=== PATIENT | female | born 1970 | race Caucasian/White ===

== ENCOUNTER → 2017-08-12 15:09 | Outpatient (CLI) | payer OTHER, SELFPAY ==
--- NOTE | 2017-08-12 15:12 | RAD_ITS ---
STUDY: X-RAY - CERVICAL SPINE REASON FOR EXAM: Female, 46 years old. Postop TECHNIQUE: 2 view(s) of the cervical spine were obtained. COMPARISON: Prior study of April 15, 2017 FINDINGS: Normal anterior atlantoaxial articulation. Normal odontoid process. There are status post posterior spinal fusion changes with interpeduncular screws from C3 through T2. There is an anterior fusion plate from C4 to C7 with status post C6 corpectomy. There are status post laminectomy changes of C3-C6. There is no evidence of acute fracture or subluxation. RAD/Cerv Spine 2 or 3 Views IMPRESSION: Status post anterior and posterior cervical fusion changes. Findings are stable from the previous study of 04/15/2017. Electronically Signed: Hesham Wasserman MD at 23:50 EDT , Service support ,
== END ==
LOC: HPRAD 15:10
PROVIDERS: Family Provider Family Medicine; PCP Family Medicine; Visit Provider Orthopaedic Surgery
DX: M54.2 Cervicalgia (principal)
CPT/HCPCS: 72040

== ENCOUNTER 2017-08-28 08:59 | Outpatient (RCR) | payer OTHER, SELFPAY ==
--- NOTE | 2017-08-28 10:10 | HP.PTEVAL_ITS ---
Patient's Visit Information BRIAN CARMEN is a 46 year old F referred to Physical Therapy by Nayeli Keenan with a diagnosis of LBP. Date of Evaluation: 08/28/17 Physical Therapist: Susi Walker - Visit Plan Frequency: 1x/Week Duration: 1 Week Plan: HOME TENS UNIT. D/C. - Subjective Subjective: THIS PATIENT PRESENT TO PT WITH C/O CHRONIC LBP SINCE A FALL ON THE ICE ABOUT 20 YEARS AGO. MRI PENDING. PATIENT REPORTS HER LOW BACK PAIN IS CONSTANT AND RANGES 2/10 TO 8/10. STANDING, BENDING, LIFTING AND WALKING MAKE IT WORSE. DECREASED PAIN WITH REST. SHE DENIES YONI LE NUMBNESS AND TINGLING. PATIENT REPORTS SHE HAS HAD A TENS UNIT IN THE PAST THAT WAS HELPFUL BUT SHE CAN 'T FIND IT AND IT WAS STARTING TO SHOCK HER. SHE REPORTS SHE IS JUST HERE FOR A TENS UNIT BECAUSE SHE HAS TRIED PT IN THE PAST AND IT MADE IT WORSE. RECENT ACDF IN FEB 2017 BUT PATIENT REPORTS NO PT HAS BEEN ORDERED FOR HER NECK. - Objective THIS PATIENT AMBULATES INDEP'LY INTO PT WITHOUT ANY ASSISTIVE DEVICES. HER SITTING POSTURE IS POOR. HER STANDING POSTURE IS POOR. SHE HAS A REDUCED LUMBAR LORDOSIS AND NO RELEVENT LATERAL SHIFT. SHE STANDS WITH INCREASED TRUNK FLEXION. YONI LE LIGHT TOUCH SENSATION IS INTACT AND SYMMETRICAL. YONI LE STRENGTH IS GROSSLY 5/5 EXCEPT HIPS GRADED 4/5. LUMBAR MVMT LOSS: FLEX - MOD, EXT - MOD, YONI SG - MOD. PATIENT HAS C/O INCREASED PAIN WITH LUMBAR ROM TESTING ALL PLANES. INCREASED MUSCLE TONE YONI PARASPINALS. SHE HAS POOR CORE STRENGTH. - Goals Goal 1:: EVALUATION FOR APPROPRIATENESS OF AND INSTRUCTION IN USE OF HOME TENS UNIT. Goal Time Frame: 1 VISIT - Rehabilitation Potential Rehabilitation Potential: Fair - Anticipated Interventions Patient/Client Instruction: Educate patient on: Condition, Plan of Care, Risk Factors For the Purpose of:: To improve self management Other: USE OF HOME TENS UNIT Thank you for the opportunity to evaluate your patient. For Medicare and Medicare HMO plans, please review the plan of care and approve it. It will need to be FAXED BACK to us at [phone] for Medicare purposes. Please let me know if there are questions or concerns regarding this plan of care. Physician Signature: Date:
--- NOTE | 2017-08-28 10:10 | HP.PTDCSUM ---
HP - PT D/C Summary It has been my pleasure to treat BRIAN CARMEN under orders from Nayeli Keenan, for the diagnosis of LBP for a total of 1 visit(s). Discharge Date: Please see the following information for a summary of their discharge status. - Goals Goal 1:: EVALUATION FOR APPROPRIATENESS OF AND INSTRUCTION IN USE OF HOME TENS UNIT. Goal Progress: Progressing - Plan Plan: HOME TENS UNIT. D/C. - D/C Information If there are questions or concerns regarding this patient's physical therapy, please feel free to call me at [phone]. Thank you for the referral of this patient. Sincerely, Susi Walker
== END 2017-08-28 11:00 | disposition home or self-care (01) ==
LOC: PT 08:59
PROVIDERS: Family Provider Family Medicine; PCP Family Medicine; Visit Provider Orthopaedic Surgery
DX: M54.9 Dorsalgia, unspecified (principal)
CPT/HCPCS: 97161; 97530

== ENCOUNTER → 2017-08-30 08:45 | Outpatient (CLI) | payer OTHER, SELFPAY ==
--- NOTE | 2017-08-30 08:46 | MRI_ITS ---
STUDY: MRI LUMBAR SPINE WITHOUT CONTRAST REASON FOR EXAM: Female, 46 years old. lbp x 20 years. TECHNIQUE: Standardized fat and water weighted pulse sequences were obtained in the sagittal and axial planes. COMPARISON: None FINDINGS: T12-L1: There is a small chronic Schmorl's node.. Normal disc height, hydration and morphology. Normal bilateral facet joints. Normal central canal and bilateral lateral recesses. Normal bilateral intervertebral neural foramina. Normal lumbar lordosis. There is no substantial scoliosis. Normal conus medullaris that terminates at the L1/L2 L1-2: There is minimal disc space narrowing and endplate spondylosis. There is no significant central canal or foraminal stenosis. There is mild facet arthropathy. L2-3: Normal endplates. Normal disc height, hydration and morphology. Normal central canal and bilateral lateral recesses. Normal bilateral intervertebral neural foramina. There is mild facet arthropathy. L3-4: Normal endplates. Normal disc height, hydration and morphology. Normal central canal and bilateral lateral recesses. Normal bilateral intervertebral neural foramina. There is mild facet arthropathy. L4-5: There is minimal disc space narrowing and endplate spondylosis. There is a minimal disc bulge and facet arthropathy without significant central canal or foraminal stenosis. L5-S1: There is mild disc space narrowing and endplate spondylosis. There is a minimal disc bulge with posterior annular fissure and facet arthropathy without significant central canal or foraminal stenosis. Normal visualized sacral ala. Normal visualized paraspinous soft tissue structures. MRI/Spine Lumbar (Routine) IMPRESSION: Mild degenerative changes. Electronically Signed: Suresh Rodriguez MD at 11:06 EDT Tel , Service support ,
== END ==
PROVIDERS: Family Provider Family Medicine; PCP Family Medicine; Visit Provider Orthopaedic Surgery
DX: M54.16 Radiculopathy, lumbar region (principal)
CPT/HCPCS: 72148

== ENCOUNTER → 2018-03-31 13:37 | Outpatient (CLI) | payer OTHER, SELFPAY ==
--- NOTE | 2018-03-31 13:39 | RAD_ITS ---
STUDY: X-RAY - CERVICAL SPINE REASON FOR EXAM: Female, 47 years old. Surgery follow-up TECHNIQUE: 2 view(s) of the cervical spine were obtained. COMPARISON: April 15, 2017 FINDINGS: Stable surgical fusion from C3 to T2 levels. Stable alignment of the vertebral column. RAD/Cerv Spine 2 or 3 Views IMPRESSION: Stable surgical fusion. Electronically Signed: Jose Alejandro Denny DO at 23:49 EST Tel [phone], Service support ,
== END ==
PROVIDERS: Family Provider Family Medicine; PCP Family Medicine; Referring Provider Orthopaedic Surgery; Visit Provider Orthopaedic Surgery
DX: M54.2 Cervicalgia (principal)
CPT/HCPCS: 72040

== ENCOUNTER → 2018-04-23 10:42 | Outpatient (CLI) | payer OTHER, SELFPAY ==
--- NOTE | 2018-04-23 10:46 | RAD_ITS ---
STUDY: X-RAY - LUMBAR SPINE REASON FOR EXAM: Female, 47 years old. Back pain TECHNIQUE: Flexion and extension views were obtained. COMPARISON: Previous study 04/23/2018 FINDINGS: There is minimal diffuse endplate spondylosis of the lumbar spine. There is no evidence of fracture or spondylolisthesis. Disc spacing is preserved. The spinous processes appear within normal limits. RAD/L/S Spine Bending Flex/Ext IMPRESSION: Minimal diffuse endplate spondylosis of the lumbar spine. There is no evidence of fracture or spondylolisthesis. Disc spacing is preserved. Electronically Signed: Hesham Wasserman MD at 23:57 EST , Service support ,
--- NOTE | 2018-04-23 11:00 | RAD_ITS ---
STUDY: X-RAY - LUMBAR SPINE REASON FOR EXAM: Female, 47 years old. Back pain TECHNIQUE: 2 view(s) of the lumbar spine were obtained. COMPARISON: Prior study of 12/10/2016 FINDINGS: Normal lumbar lordosis. There is no substantial scoliosis. There is a normal alignment of the vertebrae. There is minimal diffuse endplate spondylosis. Normal disc space heights. The soft tissue structures are unremarkable. RAD/Lumbar Spine 2 or 3 Views IMPRESSION: Minimal diffuse endplate spondylosis. Findings are similar to the previous study. Electronically Signed: Hesham Wasserman MD at 23:48 EST , Service support ,
== END ==
PROVIDERS: Family Provider Family Medicine; PCP Family Medicine; Referring Provider Anesthesiology Pain Medicine; Visit Provider Anesthesiology Pain Medicine
DX: M54.5 Low back pain (principal)
CPT/HCPCS: 72100; 72120

== ENCOUNTER → 2019-04-06 11:35 | Outpatient (CLI) | payer OTHER, SELFPAY ==
--- NOTE | 2019-04-06 13:33 | STRESSREP ---
Stress Test Report Date: 04-06-19 Procedure: Exercise tolerance test Indications: Chest pain; dyspnea on exertion Consent: Per the patient Procedure: The patient exercised on a Isaiah protocol for 5 minutes and 30 seconds completing stage I and 2 minutes and 30 seconds of stage II achieving a peak heart rate of 130 bpm (76 % predicted maximal heart rate) with a peak blood pressure 172/90 mmHg and a peak MET capacity of approximately 7 MET's. The baseline ECG demonstrated sinus rhythm. The peak exercise ECG demonstrated no obvious ECG changes at the heart rate achieved. There was a rare PVC during exercise and recovery. The functional capacity was considered average. The patient had no complaint of chest discomfort during exercise or recovery. The examination was discontinued secondary to dyspnea. Impression: 1. Technically inadequate (percent predicted maximal heart rate less than 85%) exercise tolerance test 2. Peak exercise ECG with with no obvious ECG changes at the heart rate achieved 3. There was a rare PVC during exercise and recovery This note was generated with [employer] software. It may contain incorrect words, spelling, and punctuation that were not noted in checking the note before signing.
== END ==
PROVIDERS: Family Provider Family Medicine; PCP Family Medicine; Referring Provider Family Medicine; Visit Provider Family Medicine
DX: R06.09 Other forms of dyspnea (principal); R07.89 Other chest pain
CPT/HCPCS: 93017

== ENCOUNTER → 2019-05-03 06:12 | Outpatient (CLI) | payer OTHER, SELFPAY ==
--- NOTE | 2019-05-03 11:14 | STRESSREP ---
Stress Test Report Pharmacologic myocardial perfusion stress test. 48-year-old lady with a history of chest pain. Stress protocol: Resting EKG demonstrates normal sinus rhythm with a rate of 85 bpm normal intervals are noted. 0.4 mg of regadenoson was infused per usual protocol followed up intravenous saline flush injection continuous monitoring coordinator was performed. Patient maintained sinus rhythm throughout the recording. The resting blood pressure was 138/86 with a final blood pressure of 130/78. The patient maintained sinus rhythm throughout the recording with a maximum heart rate of 118 bpm heart rate which was 69% maximum predicted heart rate. Nonspecific ST-T wave changes were noted with no meet any criteria for ischemia. Myocardial perfusion protocol. 15.0 mCi of technetium 99m sestamibi was injected at rest. 0.4 mg of regadenoson was infused per usual protocol peak infusion 45.0 mCi of technetium 99m sestamibi was injected stress images were obtained stress and rest images were reconstructed and compared in the short axis vertical and horizontal long axis. Gated images were also obtained Perfusion SPECT analysis: Review of the stress images demonstrate normal uptake of tracer noted in all rest myocardium the resting images similar demonstrate normal uptake of tracer noted in all areas of myocardium. No areas of reversibility are noted suggest ischemia no previous infarct is noted. Gated SPECT analysis: The gated ejection fraction is noted to be 60%. Conclusion: Normal pharmacologic myocardial perfusion stress test. Preserved ejection fraction.
== END ==
PROVIDERS: Family Provider Family Medicine; PCP Family Medicine; Referring Provider Family Medicine; Visit Provider Family Medicine
DX: R07.89 Other chest pain (principal); R06.09 Other forms of dyspnea
CPT/HCPCS: 78452; 93017; A9500; A4216; J2785

== ENCOUNTER → 2019-10-14 | Outpatient (CLI) | payer OTHER, SELFPAY ==
--- NOTE | 2019-10-14 11:20 | MRI_ITS ---
STUDY: MRI LUMBAR SPINE WITHOUT CONTRAST REASON FOR EXAM: Female, 49 years old. SPONDYLOLISTHESIS, RT LEG NUMBNESS, LOW BACK PAIN TECHNIQUE: Standardized fat and water weighted pulse sequences were obtained in the sagittal and axial planes. COMPARISON: 08/30/2017 FINDINGS: T12-L1: Normal endplates. Normal disc height, hydration and morphology. Normal bilateral facet joints. Normal central canal and bilateral lateral recesses. Normal bilateral intervertebral neural foramina. Normal lumbar lordosis. There is no substantial scoliosis. Normal conus medullaris that terminates at the L1. L1-2: Normal endplates. Normal disc height, hydration and morphology. Normal bilateral facet joints. Normal central canal and bilateral lateral recesses. Normal bilateral intervertebral neural foramina. L2-3: Normal endplates. Normal disc height, hydration and morphology. Normal bilateral facet joints. Normal central canal and bilateral lateral recesses. Normal bilateral intervertebral neural foramina. L3-4: Normal endplates. Normal disc height, hydration and morphology. Normal bilateral facet joints. Normal central canal and bilateral lateral recesses. Normal bilateral intervertebral neural foramina. L4-5: Mild bilateral facet hypertrophy and ligament flavum hypertrophy. Small right foraminal protrusion produces moderate spinal stenosis with abutment of the right L4 nerve root laterally. L5-S1: No change in mild broad disc protrusion which produces mild spinal stenosis, mild left neural foraminal stenosis and moderate right neural foraminal stenosis with abutment of the right L5 nerve root laterally. Normal visualized sacral ala. Normal visualized paraspinous soft tissue structures. MRI/Spine Lumbar (Routine) IMPRESSION: Mild degenerative disc disease as described above slightly worsened when compared with prior study. Electronically Signed: Júnior Loza MD at 12:23 EDT Tel , Service support ,
== END | disposition home or self-care (01) ==
PROVIDERS: PCP Family Medicine; Referring Provider Orthopaedic Surgery; Visit Provider Orthopaedic Surgery
DX: M43.16 Spondylolisthesis, lumbar region (principal)
CPT/HCPCS: 72148

== ENCOUNTER → 2019-11-29 | Outpatient (CLI) | payer OTHER, SELFPAY ==
--- NOTE | 2019-11-29 09:35 | EKG12_ITS ---
Test Reason : WATSON JOSE CARLOS Blood Pressure : / mmHG Vent. Rate : 067 BPM Atrial Rate : 067 BPM P-R Int : 174 ms QRS Dur : 078 ms QT Int : 396 ms P-R-T Axes : 059 051 063 degrees QTc Int : 418 ms Normal sinus rhythm Normal ECG Confirmed by LUIS FELIPE AC, KEYSHAWN ([id number]), loan expeditor HAROON BENITEZ ([id number]) on 12/02/2019 9:46:08 AM Referred By: JENNIFER BERNARD Confirmed By:KEYSHAWN BRISCOE MD
== END | disposition home or self-care (01) ==
LOC: PSN 09:24
PROVIDERS: PCP Family Medicine
DX: Z79.899 Other long term (current) drug therapy (principal)
CPT/HCPCS: 93005

== ENCOUNTER → 2020-09-18 14:34 | Outpatient (CLI) | payer OTHER, SELFPAY ==
[2020-09-18 13:59] VITALS: BMI 41.3
[2020-09-18 14:58] LABS: Hematocrit 48.7 % (37-47); Hemoglobin 15.8 g/dL (12.0-15.0); Mean Corp Hgb Conc 32.4 g/dL (32-36); Mean Corpuscular Hgb 28.9 pg (27.0-32.0); Mean Corpuscular Volume 89.2 fL (81-99); Mean Platelet Vol. 10.5 fl (6.2-12.0); Platelet Count 244 K/mm3 (150-450); RBC Distribution Width CV 14.6 % (11.6-14.6); RBC Distribution Width SD 47.6 fl (35.1-43.9); Red Blood Count 5.46 M/mm3 (4.2-5.4); White Blood Count 9.7 K/mm3 (4.4-11.0)
[2020-09-18 15:33] LABS: Vitamin B12 469 pg/mL (211-911)
[2020-09-18 15:43] LABS: ALB/GLOB Ratio 0.9 RATIO (0.9-2.4); AST(SGOT) 26 U/L (15-37); Alanine Aminotransfer ALT/SGPT 34 U/L (13-56); Albumin, Serum 3.6 g/dL (3.2-5.0); Alkaline Phosphatase 77 U/L (45-117); Anion Gap 7 (5-15); BUN 11 mg/dL (7-18); BUN/Creat Ratio 11.1 RATIO (10-20); Chloride 105 mmol/L (98-107); Creatinine, Serum 0.99 mg/dL (0.55-1.02); EST Glomerular Filtration Rate 63 mL/min (>60); Est Glom Filt Rate - Afr Amer 76 mL/min (>60); Ferritin 29 ng/mL (8-252); Globulin 3.9 g/dL (2.2-4.2); Glucose 126 mg/dL (74-106); Hemoglobin A1c 6.3 % (3.8-5.6); Iron 65 ug/dL (50-170); Potassium 4.2 mmol/L (3.5-5.1); Protein, Total 7.5 g/dL (6.4-8.2); Sodium Level 138 mmol/L (136-145); Thyroid Stim Hormone (TSH) 1.32 uIU/mL (0.358-3.74); Uric Acid 5.6 mg/dL (2.6-6.0)
[2020-09-20 16:09] LABS: Free Lambda Light Chains 17.6 mg/L (5.7-26.3)
== END ==
LOC: LAB 14:35
PROVIDERS: PCP Family Medicine; Referring Provider Psychiatry & Neurology Neurology; Visit Provider Psychiatry & Neurology Neurology
DX: M79.671 Pain in right foot (principal); M79.672 Pain in left foot; G25.81 Restless legs syndrome; E79.0 Hyperuricemia without signs of inflammatory arthritis and tophaceous disease; Z86.39 Personal history of other endocrine, nutritional and metabolic disease
CPT/HCPCS: 36415; 80053; 82607; 82728; 82746; 83036; 83540; 83883; 84443; 84550; 85027

== ENCOUNTER → 2020-10-02 09:46 | Outpatient (CLI) | payer OTHER, SELFPAY ==
[2020-09-18 13:59] VITALS: BMI 41.3
--- NOTE | 2020-10-02 10:24 | RAD_ITS ---
STUDY: X-RAY - LUMBAR SPINE REASON FOR EXAM: Female, 49 years old. Low back pain TECHNIQUE: 4 view(s) of the lumbar spine were obtained. COMPARISON: None FINDINGS: Normal lumbar lordosis. There is no substantial scoliosis. There is a normal alignment of the vertebrae. Normal vertebral bodies and endplates. There is multi-level degenerative disc disease with multi-level disc space narrowing. There is no demonstrated fracture. No instability on the flexion or extension views. The soft tissue structures are unremarkable. RAD/L/S Spine Bending Flex/Ext IMPRESSION: Degenerative changes of the spine, as detailed above. No acute findings or significant interval change Electronically Signed: Willian Pressley MD at 12:08 EDT , Service support ,
[2020-10-04 14:09] LABS: Albumin 3.6 g/dL (2.9-4.4); Alpha-1-Globulins 0.2 g/dL (0.0-0.4); Alpha-2-Globulins 0.9 g/dL (0.4-1.0); Gamma Globulin 1.1 g/dL (0.4-1.8); Immunoglobulin A 327 mg/dL (87-352); Immunoglobulin G 1068 mg/dL (586-1602); Immunoglobulin M 137 mg/dL (26-217); PROEL- TOTAL PROTEIN 6.8 g/dL (6.0-8.5)
== END ==
LOC: LAB 09:47
PROVIDERS: PCP Family Medicine; Referring Provider Psychiatry & Neurology Neurology; Visit Provider Psychiatry & Neurology Neurology
DX: G62.9 Polyneuropathy, unspecified (principal); Z86.39 Personal history of other endocrine, nutritional and metabolic disease
CPT/HCPCS: 36415; 72120; 82784; 84165; 86334; 86335

== ENCOUNTER → 2021-05-09 08:49 | Outpatient (CLI) | payer OTHER, SELFPAY ==
[2020-08-07 13:16] VITALS: BMI 41.3
--- NOTE | 2021-05-09 13:20 | NEURO ---
NCS and/or EMG Patient Report Ordering Doctor: Stan Coombs DATE OF SERVICE: 05/09/21 Sabina presents for electrodiagnostic testing of the lower limbs. She reports lower back pain radiating into both legs with numbness and tingling Electrodiagnostic findings: Peroneal motor response demonstrates normal distal latency, amplitude and conduction velocity bilaterally. Normal tibial motor response bilaterally. Normal tibial and peroneal F waves H reflex normal bilaterally. Sensory responses are normal on needle EMG, muscles tested in the lower limbs as well as lumbar paraspinal showed no evidence of denervation with normal motor unit action potentials. Electrodiagnostic assessment: This is a normal electrodiagnostic study of the lower limbs. There is no electrodiagnostic evidence for peripheral neuropathy or lumbosacral radiculopathy.
== END ==
LOC: PSN 08:52
PROVIDERS: PCP Family Medicine; Referring Provider Psychiatry & Neurology Neurology; Visit Provider Psychiatry & Neurology Neurology
DX: M54.16 Radiculopathy, lumbar region (principal); M54.41 Lumbago with sciatica, right side; M54.42 Lumbago with sciatica, left side; G89.29 Other chronic pain; Z86.39 Personal history of other endocrine, nutritional and metabolic disease
CPT/HCPCS: 95886; 95913

== ENCOUNTER → 2022-01-10 | Outpatient (CLI) | payer OTHER, SELFPAY ==
--- NOTE | 2022-01-10 14:34 | RAD_ITS ---
STUDY: X-RAY - PELVIS REASON FOR EXAM: Female, 51 years old. Bilateral SI joint pain TECHNIQUE: One view of the pelvis was obtained. COMPARISON: None. FINDINGS: Large amount of fecal material is seen in the colon. There are multiple calcified phleboliths. There is narrowing with cortical sclerosis and osteophyte formation of the sacroiliac joint consistent with degenerative osteoarthritic changes. Normal visualized bilateral superior and inferior pubic rami. Normal pubic symphysis. Normal ischial tuberosities. Normal visualized right femoral head. Normal right acetabulum. Normal right hip joint. Normal visualized left femoral head. Normal left acetabulum. Normal left hip joint. RAD/Pelvis 1 or 2 Views IMPRESSION: Degenerative changes of the sacroiliac joints bilaterally. Electronically Signed: Edilberto Swan MD at 15:35 EDT ,
== END | disposition home or self-care (01) ==
PROVIDERS: PCP Family Medicine; Referring Provider Psychiatry & Neurology Neurology; Visit Provider Psychiatry & Neurology Neurology
DX: M53.3 Sacrococcygeal disorders, not elsewhere classified (principal); G89.29 Other chronic pain
CPT/HCPCS: 72170

== ENCOUNTER → 2022-04-25 | Outpatient (CLI) | payer OTHER, SELFPAY ==
--- NOTE | 2022-04-25 08:11 | MRI_ITS ---
HISTORY: lower back pain TECHNIQUE: Multiplanar and multisequence MR images of the lumbar spine were obtained without intravenous contrast. Sagittal and axial T2 and T1-weighted images, sagittal STIR images. COMPARISON: XR 03-20-22, MR 10/14/2019. FINDINGS: VERTEBRAE: Vertebral body heights maintained. No significant bone marrow signal abnormality. Mild degenerative endplate changes at L5-S1. ALIGNMENT: No significant anterior or posterior subluxation CONUS: Normal morphology and position of the conus medullaris at L1. INTERVERTEBRAL DISCS: T12-L1: No significant posterior disc protrusion, central canal stenosis, or foraminal narrowing based on the sagittal images. L1-2, L2-3, L3-4: No significant posterior disc protrusion, central canal stenosis, or foraminal narrowing. L4-5: Minimal disc bulge and facet arthropathy without significant central canal stenosis. Mild bilateral foraminal narrowing, not increased from prior. L5-S1: Minimal disc bulge and facet arthropathy without significant central canal stenosis or foraminal narrowing. SOFT TISSUES: Hepatomegaly. Mild posterior subcutaneous edema. MRI/Spine Lumbar (Routine) IMPRESSION: Very mild degenerative change of the lumbar spine without significant spinal canal stenosis. Mild foraminal narrowing as above. Electronically Signed: Kristin Mary MD at 11:28 EST ,
== END | disposition home or self-care (01) ==
PROVIDERS: PCP Family Medicine; Referring Provider Orthopaedic Surgery; Visit Provider Orthopaedic Surgery
DX: M53.3 Sacrococcygeal disorders, not elsewhere classified (principal); G89.29 Other chronic pain; M54.41 Lumbago with sciatica, right side; M54.42 Lumbago with sciatica, left side
CPT/HCPCS: 72148

== ENCOUNTER 2022-09-24 14:41 | Emergency (ER) | payer OTHER, SELFPAY ==
[2022-09-24 14:41] VITALS: BP 130/86; PULSE 81; RESP 23; TEMP 36; O2SAT 99; BMI 39.5
[2022-09-24 14:46] VITALS: BP 136/96; PULSE 86; RESP 20; O2SAT 99
[2022-09-24 14:51] VITALS: O2SAT 98
--- NOTE | 2022-09-24 15:13 | EKG12_ITS ---
Test Reason : CP Blood Pressure : / mmHG Vent. Rate : 081 BPM Atrial Rate : 081 BPM P-R Int : 160 ms QRS Dur : 082 ms QT Int : 376 ms P-R-T Axes : 056 025 017 degrees QTc Int : 436 ms Normal sinus rhythm Low voltage QRS Inferior infarct , age undetermined Abnormal ECG Confirmed by SHINE AC, GINO ([id number]), editor house organ JOSETTE WALLACE ([id number]) on 09/25/2022 12:57:01 P M Referred By: MOHINDER Confirmed By:MADINA RIOJAS MD
--- NOTE | 2022-09-24 15:13 | EDS_ITS ---
HPI History of Present Illness Chief Complaint: Chest Pain Informant: patient Onset/Context/Timing Onset: Today Activity at onset: sudden Timing: Continuous Quality: Positive for Heaviness Location: Substernal, Right Parasternal, Left Parasternal, Right Chest and Left Chest Worsened By: - (Anxiety) Relieved By: Rest Associated Symptoms: Positive for Nausea, Diaphoresis, Dyspnea, Lightheadedness, Acid Reflux and Palpitations; Negative for Vomiting, Cough or Fever Narrative Narrative: Patient presents with chest pain that began today. 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 Patient st ates she felt nauseated after this. Patient states that after that she started developing some pain in her chest. Patient states it is diffuse across her chest. Patient states it did feel somewhat similar to the pain she had prior to her HI last month. Patient describes it as a heaviness. Patient states it feels like her 20 pound dog is sitting on her chest. Patient states it is worse when she becomes anxious. Patient states it is better when she is able to calm herself down. Patient admits to some nausea but denies any vomiting. Patient admits to some shortness of breath and slight diaphoresis. Patient also admits to some palpitations. CVD Risk Factors: Positive for Diabetes, Hypercholesterolemia and Smoking; Negative for Hypertension or Family History 1' </=55 PE Risk Factors: Positive for Recent Travel/Surgery; Negative for Recent Immobilization, Prior DVT or PE, Cancer or OCP + Smoking + >/=35 PFSH PFSH Medical History Atherosclerotic heart disease of [place] coronary artery without angina pectoris H/O non-insulin dependent diabetes mellitus Hyperlipemia, mixed MVP (mitral valve prolapse) Sleep apnea STEMI (ST elevation myocardial infarction) (09/06/22) Syncope Home Medications albuterol sulfate 90 mcg/actuation aerosol inhaler 2 puff inhalation Q4H PRN 08/07/20 [History Last Taken Unknown] allopurinol 300 mg tablet 300 mg PO DAILY 08/07/20 [History Last Taken Unknown] aspirin 81 mg tablet,delayed release (Adult Aspirin Regimen) 81 mg PO DAILY 08/07/20 [History Last Taken Unknown] calcium carbonate 600 mg-vitamin D3 1,000 unit-vitamin K2 90 mcg tab 1 tablet PO DAILY 08/07/20 [History Last Taken Unknown] lansoprazole 30 mg capsule,delayed release 30 mg PO DAILY 08/07/20 [History Last Taken Unknown] metoprolol succinate 50 mg tablet,extended release 24 hr 50 mg PO QHS 08/07/20 [History Last Taken Unknown] multivitamin 1 tablet PO DAILY 08/07/20 [History Last Taken Unknown] bupropion HCl 150 mg 24 hr tablet, extended release 300 mg PO DAILY 09/11/21 [History Last Taken Unknown] pravastatin 20 mg tablet 40 mg PO QHS 09/11/21 [History Last Taken Unknown] duloxetine 30 mg capsule,delayed release 30 mg PO DAILY 01/10/22 [History Last Taken Unknown] duloxetine 60 mg capsule,delayed release 60 mg PO DAILY 01/10/22 [History Last Taken Unknown] flurbiprofen 100 mg tablet 100 mg PO TID PRN pain #90 tabs 07/24/22 [Rx Last Taken Unknown] gabapentin 800 mg tablet 800 mg PO QHS #30 tabs 07/24/22 [Rx Last Taken Unknown] leucovorin 4 mg-pyridoxal phosphate 50 mg-mecobalamin 2 mg tablet (Folinic-Plus) 1 tab-cap PO QAM #30 tabs 07/24/22 [Rx Last Taken Unknown] ropinirole 0.5 mg tablet 0.5 mg PO QHS #30 tabs 07/24/22 [Rx Last Taken Unknown] Allergy/AdvReac Type Severity Reaction Status Date / Time Penicillins Allergy Rash Verified 09/24/22 14:46 adhesive tape [plastic tape] AdvReac Severe Hives Verified 09/24/22 14:46 Family History Father Congestive heart failure Brother Hypertension Surgical History History of carpal tunnel surgery History of neck surgery Stented coronary artery (09/06/22) Social History Smoking Status: Current some day smoker tobacco type: cigarettes Tobacco: How many years used: 26 second hand exposure: Yes alcohol intake: current details: RARELY substance use type: does not use marisol/mandaeism: [employer] seatbelt use: always ROS ROS ED Constitutional Constitutional ED: Denies chills or fever(s) Eyes Eyes: Denies blurry vision or change in vision ENT ENT ED: Denies rhinorrhea or sore throat Cardiovascular Cardiovascular: Reports chest pain and palpitations Respiratory/Chest Respiratory/Chest: Reports dyspnea; Denies cough Gastrointestinal Gastrointestinal: Reports nausea; Denies abdominal pain or vomiting Genitourinary Genitourinary ED: Denies dysuria or hematuria Musculoskeletal Musculoskeletal: Reports back pain and neck pain Integumentary Denies abscess or rash Neurologic Neurologic: Denies headache(s) or weakness Allergic/Immunologic Allergic/Immunologic ED: Denies mouth swelling or urticaria EXAM Physical Exam Const Vital Signs: 09/24/22 14:41 09/24/22 14:46 09/24/22 14:47 Temperature 96.8 F L Temperature Source Temporal Pulse Rate 81 86 Respiratory Rate 23 H 20 H Respiratory Effort Normal Non-Labored Blood Pressure 130/86 H 136/96 H Blood Pressure Mean 100 109 Pulse Ox 99 99 Oxygen Delivery Method Room Air Room Air 09/24/22 14:51 09/24/22 15:21 09/24/22 16:19 Temperature Temperature Source Pulse Rate 85 Respiratory Rate 18 Respiratory Effort Blood Pressure 119/80 Blood Pressure Mean 93 Pulse Ox 98 98 Oxygen Delivery Method Room Air Room Air Room Air Positive well nourished, well developed and obese General Appearance ED: well developed and NAD Nutritional Appearance: obese HEENT normocephalic and atraumatic Eyes PERRL and EOMs intact bilaterally Neck supple and no JVD Chest Wall palpation of chest normal Resp normal respiratory effort and clear to auscultation bilaterally Effort and Inspection: Negative for respiratory distress Cardio regular rate and regular rhythm GI normal to inspection, nondistended, normoactive bowel sounds, soft to palpation, non-tender and non-distended Extremity normal to inspection General Extremety ED: Negative for edema or tenderness General Extremity: Negative for edema Neuro oriented x3, CN's II-XII intact bilaterally and no sensory deficits noted Sensorium / Orientation: awake and alert Motor Exam: strength 5/5 throughout Psych mental status grossly normal Heart Score History: Moderately Suspicious ECG: Nonspecific Repolarization Age: >45 - <65 years Risk Factors: >/= 3 Risk Factors or History of CAD Troponin: </= Normal Limit Score: 5 MDM MDM MDM Narrative Medical decision making narrative: Differential diagnosis includes cardiac dysrhythmia, cardiac ischemia, pulmonary embolism, pneumonia, pneumothorax, electrolyte abnormality, anxiety, vertigo, and musculoskeletal pain. EKG will be obtained to assess for cardiac dysrhythmia and cardiac ischemia. Chest x-ray will be obtained to assess for pneumonia and pneumothorax. CBC will be obtained to assess for leukocytosis and anemia. Basic metabolic profile will be obtained to assess for electrolyte abnormality and renal function. High-sensitivity troponin will be obtained to assess for cardiac ischemia. 2-hour repeat high-sensitivity troponin will be obtained to assess for ongoing cardiac ischemia. D-dimer will be obtained to assess for pulmonary embolism. Lab Data Attestation: I reviewed the patient's lab results. Lab results narrative: CBC was reviewed. There is a mild leukocytosis of 12.4. Basic metabolic profile was reviewed and was essentially within normal limits. High-sensitivity troponin was reviewed and was normal at 18. D-dimer was reviewed and was 0.52 which is normal for her age. 2-hour repeat high-sensitivity troponin was reviewed and was normal at 18. Labs: Laboratory Results - last 24 hr 09/24/22 09/24/22 09/24/22 14:50 14:50 14:50 WBC 12.4 H RBC 4.87 Hgb 14.6 Hct 44.4 MCV 91.2 MCH 30.0 MCHC 32.9 RDW Std Deviation 50.4 H RDW Coeff of [place]urn[place] 15.3 H Plt Count 277 MPV 10.9 Immature Gran % (Auto) 0.600 Neut % (Auto) 61.1 Lymph % (Auto) 27.6 [place] % (Auto) 7.5 Eos % (Auto) 2.5 Baso % (Auto) 0.7 Absolute Neuts (auto) 7.6 Absolute Lymphs (auto) 3.42 Nucleated RBC % 0 D-Dimer Quant (PE/DVT) 0.52 H* Sodium 139 Potassium 4.8 Chloride 107 Carbon Dioxide 26.0 Anion Gap 6 BUN 13 Creatinine 1.08 H Estim Creat Clear Calc 47.65 Est GFR (MDRD) Af Amer 68 Est GFR (MDRD) Non-Af 56 L BUN/Creatinine Ratio 12.0 Glucose 113 H Calcium 9.3 Troponin I High Sens 18 09/24/22 17:14 WBC RBC Hgb Hct MCV MCH MCHC RDW Std Deviation RDW Coeff of [place] Plt Count MPV Immature Gran % (Auto) Neut % (Auto) Lymph % (Auto) [place] % (Auto) Eos % (Auto) Baso % (Auto) Absolute Neuts (auto) Absolute Lymphs (auto) Nucleated RBC % D-Dimer Quant (PE/DVT) Sodium Potassium Chloride Carbon Dioxide Anion Gap BUN Creatinine Estim Creat Clear Calc Est GFR (MDRD) Af Amer Est GFR (MDRD) Non-Af BUN/Creatinine Ratio Glucose Calcium Troponin I High Sens 18 Radiography Chest X-Ray - ED: 1 View, Read by ED Physician, Read by Radiologist and No Acute Disease Diagnostic Testing: Clinical Impression(s) from Imaging Studies Chest X-Ray 09/24/22 15:28 IMPRESSION: No acute abnormality is seen. Electronically Signed: Edilberto Swan MD at 15:39 EDT , Portable 1 view chest x-ray was obtained. On my independent interpretation, lung alanis are clear. There is normal cardiac silhouette. Bony thorax is normal. There is no acute process noted. Radiologist also interpreted the x- ray and agrees. EKG Initial EKG: Attestation: I personally reviewed and interpreted this EKG as follows: Interpretation: Sinus Rhythm (81) and Non-Specific ST Changes Comments: EKG was obtained. On my independent interpretation, it showed a normal sinus rhythm with a rate of 81. OK interval, QRS interval, and QTc intervals were all normal. [place] was normal. There are nonspecific ST-T wave changes. Prior EKG tracings: available for review Prior: Changed (Compared to EKG from 09/06/2022, the ST segment elevation in the inferior leads has returned to baseline.) Treatment and Re-Evaluation :: Patient was given aspirin here. Patient was advised of her findings. Patient does have a HEART score of 5. However, patient had a recent cardiac cath and stent placement. Patient is feeling better on reevaluation. With 2 normal troponins, I do not feel this is cardiac in nature and I do not feel this is any restenosis of her cardiac stents. I feel the patient is able to be discharged home. Patient feels better and wants to go home. Patient was instructed to follow-up with her primary care physician in 3 to 5 days. Patient understood and was agreeable with the plan. All questions were answered. Discharge Plan Triage Chief Complaint: Chest Pain ED Provider: Jeronimo Slade Dx/Rx/DC Orders Clinical Impression: Chest pain, Vertigo Instructions: ED Chest Pain, Uncertain Cause, ED Dizziness, Uncertain Cause Prescriptions: No Action metoprolol succinate 50 mg tablet extended release 24 hr 50 mg PO QHS allopurinol 300 mg tablet 300 mg PO DAILY lansoprazole 30 mg capsule,delayed release(DR/EC) 30 mg PO DAILY Label Comments: Take 1 capsule by mouth once daily. albuterol sulfate 90 mcg/actuation HFA aerosol inhaler 2 puff INHALATION Q4H PRN Label Comments: Inhale 2 Puffs as instructed every 4 hours as needed for Wheezing/Shortness of Breath. calcium carb-vitamin D3-vit K2 600 mg-1,000 unit-90 mcg tablet 1 tablet PO DAILY multivitamin Tablet 1 tablet PO DAILY aspirin [Adult Aspirin Regimen] 81 mg tablet,delayed release (DR/EC) 81 mg PO DAILY duloxetine 30 mg capsule,delayed release(DR/EC) 30 mg PO DAILY duloxetine 60 mg capsule,delayed release(DR/EC) 60 mg PO DAILY ropinirole 0.5 mg tablet 0.5 mg PO QHS Qty: 30 6RF gabapentin 800 mg tablet 800 mg PO QHS Qty: 30 5RF flurbiprofen 100 mg tablet 100 mg PO TID PRN (Reason: pain) Qty: 90 5RF Folinic-Plus 4-50-2 mg tablet 1 tab-cap PO QAM Qty: 30 6RF bupropion HCl 150 mg tablet extended release 24 hr 300 mg PO DAILY pravastatin 20 mg tablet 40 mg PO QHS Primary Care Provider: Guido Mckeon Referrals: Guido Mckeon MD [Primary Care Provider] - 3-5 Days Disposition Disposition: Home, Self Care
[2022-09-24 15:22] LABS: Absolute Lymphocyte Count 3.42 X10^3/uL (0.83-4.51); Absolute Neutrophil Count 7.6 X10^3/uL (2.0-7.7); Basophil# 0.09 X10^3/uL; Basophil% 0.7 % (0-1); Eosinophil# 0.31 X10^3/uL; Eosinophils% 2.5 % (0-5); Hematocrit 44.4 % (37-47); Hemoglobin 14.6 g/dL (12.0-15.0); Lymphocyte # 3.42 X10^3/ul (0.83-4.51); Lymphocyte % 27.6 % (19-41); Mean Corp Hgb Conc 32.9 g/dL (32-36); Mean Corpuscular Volume 91.2 fL (81-99); Mean Platelet Vol. 10.9 fl (6.2-12.0); Monocyte# 0.93 X10^3/uL; Monocyte% 7.5 % (0-10); NRBC Flagged by Analyzer 0 % (0-5); Neutrophil # 7.55 X10^3/uL (2.7-7.7); Neutrophil % 61.1 % (47-70); Platelet Count 277 K/mm3 (150-450); RBC Distribution Width CV 15.3 % (11.6-14.6); RBC Distribution Width SD 50.4 fl (35.1-43.9); Red Blood Count 4.87 M/mm3 (4.2-5.4); White Blood Count 12.4 K/mm3 (4.4-11.0)
--- NOTE | 2022-09-24 15:28 | RAD_ITS ---
STUDY: X-RAY CHEST REASON FOR EXAM: Female, 51 years old. Chest pain TECHNIQUE: Single AP portable view of the chest. COMPARISON: Comparison is made with prior study February 08, 2016. FINDINGS: EKG electrodes are seen. The lungs are clear and expanded. Scattered calcified granulomas. There is no demonstrated pleural abnormality. Normal size heart. Normal mediastinum and nataliia. Normal visualized pulmonary arteries. Normal visualized aortic arch and descending thoracic aorta. There are diffuse degenerative changes of the visualized thoracic spine. The patient is status post fusion in the lower cervical spine. There is no demonstrated abnormality of the visualized soft tissue structures of the upper abdomen. RAD/Chest 1 View (Portable) IMPRESSION: No acute abnormality is seen. Electronically Signed: Edilberto Swan MD at 15:39 EDT ,
[2022-09-24] MEDS: Aspirin 81 MG TAB.CHEW 324 MG PO (15:29)
[2022-09-24 15:48] LABS: Anion Gap 6 (5-15); BUN 13 mg/dL (7-18); Calcium,Total 9.3 mg/dL (8.5-10.1); Chloride 107 mmol/L (98-107); Creatinine, Serum 1.08 mg/dL (0.55-1.02); EST Glomerular Filtration Rate 56 mL/min (>60); Est Glom Filt Rate - Afr Amer 68 mL/min (>60); Estimated Creatinine Clearance 47.65 ml/min; Glucose 113 mg/dL (74-106); Potassium 4.8 mmol/L (3.5-5.1); Sodium Level 139 mmol/L (136-145); Troponin-I HS (w/2H Reflex) 18 pg/mL (3.0-54.0)
[2022-09-24 15:59] LABS: D-Dimer Quantitative (DVT/PE) 0.52 FEU/ug/m (0.27-0.49)
[2022-09-24 16:19] VITALS: BP 119/80; PULSE 85; RESP 18; O2SAT 98
[2022-09-24 17:19] LABS: Reflex Troponin-HS? (from REC) Y
[2022-09-24 17:47] LABS: Troponin-I HS 18 pg/mL (3.0-54.0)
[2022-09-24 18:29] VITALS: BP 112/82; PULSE 74; RESP 16; O2SAT 97
== END 2022-09-24 18:31 | disposition home or self-care (01) ==
PROVIDERS: Emergency Provider Emergency Medicine; PCP Family Medicine; Visit Provider Emergency Medicine
DX: R07.9 Chest pain, unspecified (principal); E11.9 Type 2 diabetes mellitus without complications; F17.210 Nicotine dependence, cigarettes, uncomplicated; R42 Dizziness and giddiness; F41.9 Anxiety disorder, unspecified; I25.10 Atherosclerotic heart disease of native coronary artery without angina pectoris; R11.0 Nausea; E78.2 Mixed hyperlipidemia; E66.9 Obesity, unspecified; K21.9 Gastro-esophageal reflux disease without esophagitis; R00.2 Palpitations
CPT/HCPCS: 71045; 80048; 84484; 85025; 85379; 93005; 99285; A4216

== ENCOUNTER → 2022-09-30 | Outpatient (CLI) | payer OTHER, SELFPAY ==
--- NOTE | 2022-09-30 08:04 | PCM.CR.HP2 ---
CR - History & Physical - General Arrival date:: 09/30/22 Arrival time:: 08:00 Date of Referral:: 09/19/22 Date of CR Evaluation:: 09/30/22 Referring Physician: Dr. Kris Garcia Primary Diagnosis: [place]-STEMI, PC w/cornary stenting - History of Present Cardiac Event Onset Date: Enter Onset Date of cardiac illnesses in Comment field below Acute Myocardial Infarction within 12 months:: Yes - 09/06/2022 PTCA or coronary stenting:: Yes - 09/06/2022 single stent Type of Symptoms:: Real dizzy, went to the bathroom became very nauseated (like needed to vomit), broke out in a deep sweat. Called 911. Stayed alert throughout the incident. Interventions with present event:: Immediate taken to the [facility]. Were there any complications?: None - Sleep Disorder Evaluation Hx of Sleep Apnea: Yes Do you snore loudly (louder than talking or can be heard through closed doors)?: Yes Do you often feel tired/ fatigued/ sleepy during daytime?: No Has anyone observed you stop breathing during sleep?: Yes History of Hypertension (for STOP score): Yes - Patient has already been diagnosed with Obstructive Sleep Apnea STOP Results: Positive - Medications Home Medications: Ambulatory Orders Medication Instructions Recorded albuterol sulfate 90 mcg/actuation 2 puff inhalation Q4H PRN 08/07/20 aerosol inhaler allopurinol 300 mg tablet 300 mg PO DAILY 08/07/20 aspirin 81 mg tablet,delayed 81 mg PO DAILY 08/07/20 release (Adult Aspirin Regimen) calcium carbonate 600 mg-vitamin 1 tablet PO DAILY 08/07/20 D3 1,000 unit-vitamin K2 90 mcg tab lansoprazole 30 mg capsule,delayed 30 mg PO DAILY 08/07/20 release metoprolol succinate 50 mg 50 mg PO QHS 08/07/20 tablet,extended release 24 hr multivitamin 1 tablet PO DAILY 08/07/20 bupropion HCl 150 mg 24 hr tablet, 300 mg PO DAILY 09/11/21 extended release duloxetine 30 mg capsule,delayed 30 mg PO DAILY 01/10/22 release duloxetine 60 mg capsule,delayed 60 mg PO DAILY 01/10/22 release flurbiprofen 100 mg tablet 100 mg PO TID PRN pain #90 tabs 07/24/22 gabapentin 800 mg tablet 800 mg PO QHS #30 tabs 07/24/22 leucovorin 4 mg-pyridoxal 1 tab-cap PO QAM #30 tabs 07/24/22 phosphate 50 mg-mecobalamin 2 mg tablet (Folinic-Plus) ropinirole 0.5 mg tablet 0.5 mg PO QHS #30 tabs 07/24/22 atorvastatin 80 mg tablet 80 mg PO QHS 09/30/22 ticagrelor 90 mg tablet (Brilinta) 90 mg PO Q12H 09/30/22 - Allergies Allergies/Adverse Reactions: Allergies Penicillins Allergy (Verified 09/24/22 14:46) Rash adhesive tape [plastic tape] Adverse Reaction (Severe, Verified 09/24/22 14:46) Hives Advanced Directives - Advanced Directives Power of Printing Machine Mechanic: No Living Will: No Advance Directives Information Provided: Yes Advance Directives on File: No DNR Order?:: No - MOLST See MOLST form: No Past Medical History - Covid-19 Screening Fever: No Unexplained muscle aches: No - CHRonic muscle pain due to back problems Current respiratory symptoms: No Upper respiratory infections symptoms: No Gastro-intestinal symptoms: Yes - Gastric Reflux [id number] symptoms: No Has tested positive for COVID-19 in last 30 days: No Had contact w/person w/symptoms or Covid-19 (+) last 14 days: No Has High Risk Exposures ID'd by Health dept/Inf Control team: No 65 years or older:: No Lives in Assisted Living facility:: No Has a chronic lung disease or moderate to severe asthma:: Yes Has a serious heart condition:: No Immunocompromised:: No Severely obese (Body Mass Index of 40 or higher):: Yes Diabetic:: Yes Has chronic kidney disease undergoing dialysis:: No Has liver disease:: No - Past Medical Illness Medical History: Past Medical History (Last Reviewed 09/24/22 @ 16:[address] Jeronimo Slade, DO) Atherosclerotic heart disease of [place] coronary artery without angina pectoris I25.10 H/O non-insulin dependent diabetes mellitus Z86.39 Hyperlipemia, mixed E78.2 MVP (mitral valve prolapse) I34.1 Sleep apnea G47.30 STEMI (ST elevation myocardial infarction) Onset Date: 09/06/22 I21.3 Syncope R55 vasovagal/neurocardiogenic - Past Surgical History Surgical History: Past Surgical History (Last Reviewed 09/24/22 @ 16:[address] Jeronimo Slade, DO) History of carpal tunnel surgery Z92.89 History of neck surgery Z98.890 5 YEARS AGO [place] Stented coronary artery Onset Date: 09/06/22 Z95.5 3.5 X 26 mm Synergy SOSA to mid RCA @ [facility]) per Dr. Edwina Gonzalez - Family History Summary Family History: Family History (Last Reviewed 09/02/22 @ 11:36 by Veronica Angeles) Father Congestive heart failure Brother Hypertension Social History - Smoking History Smoking Status: Current every day smoker Years Smokin Packs Smoked per Day: 6 - Down from 1 to 1.5 PPD Hx Tobacco Use: Yes Hx Smoking Exposure: Yes - Alcohol Use Alcohol Usage: Yes - very rarely; special occasions 1-2 times per year if any - Substance Abuse Hx Substance Use: No - Occupation Occupation (List type of work in comments):: Employed Hours worked per day:: 8 - [employer] Returned to work on:: 09/17/22 - Hobbies, Recreation, Social Activities Hobbies: Other Recreational Activities: I am able to engage in a few activities - back needing surgery for L5-S1 joint issues Social Environment - Status Marital Status: - Current Living Arrangements Living Environment:: Spouse - Children How many children do you have?: 0 Do any of your children live nearby?: No - Safety Do you feel safe in your surroundings?: Yes - Assistance Do you need any assistance at home?: no Review of Systems - Review of Systems Hints: Right click = Denies (Slash). Left click = Reports ([place]) Review of Present Symptoms: Reports: Shortness of Breath at Rest - Questioning if it is relateed to the Brilinta but getting less., Shortness of Breath with Exertion, Dizziness/Lightheadedness - bending over certain way, standing to quickly, Fatigue, Appetite - Normal, Sleep - Normal. Denies: Angina, Heart Arrhythmia/Irregularities, Appetite - Special Diet - low-fat foods, cut out cheese, low sugar, Sexual Changes - Pain Is Patient Pain Free?: No Pain Location: back Pain Level: 6/10 - Chronic back pain (requiring back surgery but has been delayed due to the heart attack) Risk Factor Assessment - Vital Signs Temperature: 98.2 F Respiratory Rate: 14 Pulse Ox: 98 Blood Pressure: 140/84 - Pulse Pulse Rate: 97 Pulse Rhythm: Regular - Hypertension Blood Pressure Sitting - Left Arm: 140/84 - Blood Cholesterol/Lipids Total Cholesterol (mg/dL) Goal = less than 200 mg/dL: 185 HDL Cholesterol (mg/dL) Goal = less than 40 mg/dL: 36 LDL Cholesterol (mg/dL) Goal = less than 70 mg/dL: 105 - . Triglycerides (mg/dL) Goal = less than 150 mg/dL: 219 - Diabetes Diabetic History: Type II, Medication Dependent - Obesity Height: 5 ft 2 in Weight:: 227 lb Weight in Pounds: 227.0 lbs Weight Source: Stated by Patient Body Mass Index (BMI): 41.5 Nutritional Referral for Obesity: Yes - Physical Inactivity Physical Inactivity: None - Risk Stratification Risk Guidelines: Moderate Risk: Risk Factor for Diabetes - Glucose 126; A1c 6.3, Risk Factor for Sedentary Lifestyle - Mostly due to L5-S1 joint needing surgery to repair, Highest Risk: Risk Factor for Smoking, Risk Factor for Dyslipidemia, Risk Factor for Obesity - BMI 41, Risk Factor for Hypertension - 140/84, Risk Factor for Sedentary Lifestyle - Family History Family History: Family History (Last Reviewed 09/02/22 @ 11:36 by Veronica Angeles) Father Congestive heart failure Brother Hypertension Motivation - Motivation to Participate On a scale of 1 to 10, how prepared are you to commit to attending program?: 10 What do you see as barriers to successfully being able to complete the program?: Chronic Back pain What do you see as the benefits of succesfully completing the program? In other words, what do you hope to get out of participating in the program?: Build up endurance, be able to exercise, hopefully help my back some Are there issues you are dealing with that will interfere with completing the program?: Chronic back Pain Do you have a spouse or signficant other, family or friends who will help support you to complete the program?: Yes
--- NOTE | 2022-09-30 08:05 | CR.ITP_ITS ---
Diagnosis - General Information Admitting Diagnosis: S/P WI-STEMI w/ PCI intervention and single stent placement Secondary Diagnosis: Non-insulin dependent DM Type II, Hypertension, Hyperlipidemia, Mitral Valve prolapse Personal Learning Style:: Written Barriers to Learning: Vision Impairment Stage of change r/t lifestyle modifications:: Action Gave educational material for:: Treating Heart Disease, Emotions & Heart Disease, Stress Management & Relaxation, Sleep Disorders & Heart Disease, How The Heart Works, What it means to have Heart Disease, How Coronary Artery Disease is Diagnosed, Heart Procedures, What Heart Medications Do, Risk Factors & Modifications, Living an Active Life, Nutrition - Education/Goals Individual Counseling: Initial Assessment: Nicotine/Smoking, Abnormal Cholesterol Levels, High Blood Pressure, Overweight/Obesity, Diabetes, Sedentary Lifestyle - Due to S1 joint issues needing surgery. Cardiac Rehabilitation Goals: 1. Maintain the individual as the primary focus of care. 2. To improve the patient's quality of life. 3. Identification of cardiac risk factors and provide cardiac risk factor management. 4. Enhance the psychosocial status of the patient. 5. Reconditioning enough to allow the patient to resume customary activities. 6. Control symptoms of cardiac disease Personal Goals: Initial Assessment: Quit smoking (participate in smoking cessation - I know I need to quit Smoking, Improve management of stress and emotions, Improve energy level, Participate in home exercise program, Get back to work, or to resume activities faster, Improve knowledge of cardiac disease, Improve muscle strength and endurance, Improve diet and eating habits (eat healthier), Control risk factors (learn risk factor modification) Scale for measuring improvement of personal goals: Enter appropriate number in Comments. 2 = Unchanged. 3 = Slightly Better. 4 = Moderate Improvement. 5 = Met my Goal - Diagnosis & Disease Process Outcomes/Goals: Pt IDs own risk factors & lifestyle modifications by Session 10, Verbalizes symptoms of angina & response by session 3., Pt independently manages Plan/Interventions: Assist Pt to ID & engage in lifestyle modification to reduce CVD risk, Instruct on individual risk factors, Review symptoms of angina & emergency actions, Review secondary diagnosis & identify educational needs. - Safety Referral to Physical Therapy: No Referral to [facility] Case Management: No Fall Risk Assessed:: Yes Assistive Devices:: None Exercise - Initial Assessment - Visit Date of Eval: 09/30/22 Session #:: 0 - Pre-cardiac rehab evaluation Mets: Pre-: >7 METS for 30 minutes by discharge - Physician Prescribed Exercise Modalities: NuStep, SciFit, Lateral Franks Field Frequency: 3x/week for 12 weeks [36 sessions] Intensity: 60-80% of age predicted maximum heart rate reserve Duration: 30 - 45 minutes Current METSs:: 3.0 Target Heart Rate:: 109-125 Resting Blood Pressure: 140/84 EKG Type: Normal Sinus Rhythm - Outcomes & Goals Goals:: Verbalizes understanding of THR, RPE & goal METS by session 6, Documents in home exercise log/reports 30 min aerobic 5 day/wk by DC, Demonstrates acc urate pulse taking by DC - Intervention & Plan Exercise Program Goals: Instruct on personal THR & RPE, Instruct on MET level & personal MET goal, Show patient to take own pulse /validate performance until accurate, Instruct on home exercise - Physical Activity Home Exercise Physical Activity - Home Exercise: Safe Exercise, Warm-up, Self-monitoring, Cool-Down, Home Exercise > 30 min Daily, Sitting Time <3 hours/daily - Outcomes & Goals Outcomes/Goals: Demonstrates correct Warm-up/exercise Cool-Down (S3) if = 2.5 METs, Verbalizes symptoms of exercise intolerance by Session 3 (S3), Demonstrate safe equipment use (S3) & follows exercise prescrition (6) - Intervention & Plan Plan/Intervention: Instruct warm-up & cool-down if exercising at > 2 METs, Instruct on symptoms of exercise intolerance & actions to take, Instruct & monitor on saf, Assess intial functional capacity & safety risk Nutrition - Initial Assessment - Program Goals Nutrition Program Goals: LDL <100 optimal. 100 - 129 Near optimal. 130 - 159 Borderline High. 160 - 189 High. Total Cholesterol <200 desirable. 200 - 239 Borderline High. >/= 240 High. HDL < 40 Low >/=60 High. Triglycerides <150 desirable. <199 optimal. VlDL 5 - 40. HgbA1C <7%. BMI <25 Patient has diagnosis of Hyperlipidemia (ICD E78)?: Yes - Visit Date of Assessment:: 09/30/22 Session #:: 0 - Pre-cardiac rehab evaluation - Cholesterol/Lipids (Other Core Measures) Triglycerides (mg/dL): 219 Total Cholesterol (mg/dL): 185 LDL Cholesterol (mg/dL): 105 HDL Cholesterol (mg/dL): 36 Determine presence & major risk factors that modify LDL goal: Cigarette smoking, Hypertension or hypertensive medication, Low HDL cholesterol <40 mg/dL*, Age men > 45 years; women >/= 55 years Outcomes/Goals: Pt IDs own risk factors & lifestyle modifications by Session 10, Verbalizes symptoms of angina & response by session 3., Pt independently manages Intervention/Plan: Instruct on personal lipid levels & lipid goals/NCEP guidelines, Instruct on cholesterol Referral to dietitian:: Yes - Medical Nutrition Therapy - Diabetes (Other Core Measures) Diabetes Type: Diagnosis Type II ICD-10 E11 Fasting blood glucose:: 126 Hgb A1C (4.2 - 6.3): 6.3 Insulin dependent injection/pump?: No Non-Insulin Dependent?: No Do you monitor your blood sugar at home?: Yes Outcomes/Goals:: Able to state symptoms of, Able to state, Able to state Intervention/Plan:: Instruct on, Refer to, Instruct on - Weight Mgt (Other Care) Not Applicable: No Height: 5 ft 2 in Weight:: 227 lb BMI: 41.5 Diagnosis Overweight/Obesity BMI> 30% ICD-10 E66: Yes Diagnosis High BMI/Morbid Obesity BMI> 35% ICD-10 Z68: Yes Outcomes/Goals: Pt sets, maintains & shows weight loss goal & trend during rehab Intervention/Plan: Instruct on ideal BMI & set weight loss goal w/patient, Assist pt to ID & incorporate diet changes for weight loss by S9, Refer to Structured Weight Loss program as appropriate, Encourage goal of using 250- 300dcal per session for weight loss - Healthy Eating Habits Will attend diet classes:: Yes Outcomes/Goals:: Consume diet rich in vegs,fruits,whole grain/high fiber,fish,lean meat, Limit sat/trans fats,cholesterol & added salts & sugars Intervention/Plan:: Assess current eating habits - Education Gave educational materials for:: Signs & symptoms of hypoglycemia, Signs & symptoms of hyperglycemia, Relate diabetes to coronary artery disease, Healthy eating Nutrition - 30-Day Assessment Nutrition - 60-Day Assessment Nutrition - 90-Day Assessment Nutrition - Final Assessment Core - Initial Assessment - Visit Date of Eval: 09/30/22 Session #:: 0 - Pre-cardiac rehab evaluation - Medication Compliance Preventative Medication(s):: Aspirin, Ticagrelor/P2Y12 inhibitor, Statin/lipid, Beta eleonora H/O mental health issues: depression, anxiety, or addiction?: No Doesn?t believe in the benefits of treatment?: No Believes medications are unnecessary or harmful?: No Has a concern about medication side effects?: No Expresses concern over the cost of medications?: No Outcomes/Goals: Verbalizes medications,desired effect & common side effects @ DC, Pt self-reports following medication regimen, Keeps card in wallet w/medications listed by DC Interventions/plans: Instruct on medication effects & side effects, Review medication list w/patient every two weeks, Instruct importance of taking meds as ordered & assist problem solving - Tobacco Use Tobacco Use: Cigarettes How many cigarettes do you smoke per day?: 6 - Previous pack to 1.5 ppd Years Smokin Do you use smokeless tobacco?: No Outcomes/Goals: Smoking cessation achieved or maintained by discharge, Identify aids/strategies for achieving smoking cessation by session 6 Interventions/plan: Instruct on effects of smoking & provide smoking cessation resource, Assist pt to set quit date & provide encouragement, Assist pt to develop strategies to achieve/maintain quit date, Assist pt w/nicotine replacement & medication for cessation success - Hypertension Hypertension Diagnosis:: Hypertension ICD-10 I10 Resting Blood Pressure:: 140/84 [place] [employer] Hypertension Guidelines: [place] [employer] Hypertension Guidelines. Normal BP Less than 120/80. Elevated BP 120/80. Hypertension Stage 1: BP 130-139/80-89. Hypertesnion Stage 2: BP 140 or higher/90 or higher. Hypertension Crisis: BP higher than 180/120 Outcomes/Goals: Able to verbalize/achieve optimal blood pressure <130/80, Incorporates diet changes & exercise for blood pressure control by DC Interventions/plan: Instruct on optimal blood pressure, hypertension & medications, Instruct on effects of sodium, alcohol, stress, exercise &hypertension - Tobacco Cessation Referral Smoking Cessation Referral:: Yes Individual Education/Counseling:: Yes Education Schedule Given:: Yes Core - 30-Day Assessment Core - 60-Day Assessment Core - 90 Day Assessment Core - Final Assessment Psychosocial - Initial Assess - VIsit Date of Eval: 09/30/22 Session #:: 0 - Pre-cardiac rehab evaluation Not Applicable: No History of previous Mental disease:: Yes History of Emotional Disorders: Anxious, Depression - Psychosocial Test Tool Used:: [employer] QOL Cardiac, PHQ-9 Questionnaire phq-9 Severity: Severity. 1-4 Minimal Depression. 5-9 Mild Depression. 10-14 Moderate Depression. 15-19 Moderately Sever Depression. 20-27 Severe Depression. Rule: See PHQ-9 Score: 12 - PHQ indicated Moderate Depression - Referral to Behavioral Health PS - Interventions: Yes Referral to Physician if PHQ-9 if score is 5-9: - PHQ-9 indicated Moderate level of depression, Yes Attend Stress Management Classes, No Referral to Behavioral Health if PHQ-9 score >9:, No Referral to [facility] - Outcomes/Goals: See list Psychosocial Outcomes/Goals:: ID's personal stressors & 2 strategies to manage stress by discharge - Intervention/Plan: See List Interventions/Plan:: Assess stressors,coping strategies & signs of derpression on admission, Instruct/assist pt to develop coping & personal stress Mgt strategies, Instruct patient to recognize signs & symptoms of depression, Instruct patient to recog Psychosocial - 30-Day Assess Psychosocial - 60-Day Assess Psychosocial - 90-Day Assess Psychosocial - Final Assessmen Patient Health Questionnaire Initial Assessment 1. Little interest or pleasure in doing things: Several days 2. Feeling down, depressed, or hopeless: Several days 3. Trouble falling or staying asleep, or sleeping too much: More than half the days 4. Feeling tired or having little energy: More than half the days 5. Poor appetite or overeating: Not at all 6. Feeling bad about yourself -- or that you are a failure or have let yourself or your family down: Nearly every day 7. Trouble concentrating on things, such as reading the newspaper or watching television: Nearly every day 8. Moving or speaking so slowly that other people could have noticed. Or the opposite - being so fidgety or restless that you have been moving around a lot more than usual: Not at all 9. Thoughts that you would be better off , or of hurting yourself in some way: Not at all How difficult have these problems made it for you to do your work, take care of things at home, or get along with other people?: Extremely difficult Total Score: 12 WILD-Q SV Test - Statements CAD is a disease of the arteries in the heart: False Examples of risk factors for heart disease: True Angina is chest pain or discomfort: True The benefits of resistance training include: True Eating more meat and dairy products: False Anti-platelet medications such as aspirin are important: False The only effective way to manage stress: False An exercise warm-up slowly increases heart rate: False Prepared, processed foods usually have high sodium: True Depression is common after a heart attack: True The statin medications lower cholesterol: True To control blood pressure, lower the amount of sodium: True If someone gets chest discomfort during walking: False Transfats are partially hydrogenated vegetable oils: True Sleep apnea that is not treated increases the risk: False To control cholesterol, one should become a vegetarian: False Someone knows if he/she is exercising at the right level: True Diabetes cannot be prevented with exercise & health eating: False Stress is a large risk for heart attack: True A diet that can help lower blood pressure is rich in: True - Total Score Total Correct Responses: 18 Self-Efficacy Initial Assessment We would like to know how confident you are in doing certain activities. Please select your confidence level for:: Select your confidence level for the following using the scale 1-10 where 1 is not at all confident and 10 is totally confident. Your score is the average of all 6 responses. Fatigue: How confident are you that you can keep the fatigue caused by your disease from interfering with the things you want to do? Select Number: 3 Physical Discomfort or Pain: How confident are you that you can keep the physical discomfort or pain of your disease from interfering with the things you want to do? Select Number: 3 Emotional Distress: How confident are you that you can keep the emotional distress caused by your disease from interfering with the things you want to do? Select Number: 3 Other Symptoms or Health Problems: How confident are you that you can keep other symptoms or health problems from interfering with the things you want to do? Select Number: 3 Different Tasks and Activities: How confident are you that you can do the different tasks and activities needed to manage your health condition so as to reduce your need to see a doctor? Select Number: 3 Medication: How confident are you that you can do things other than just taking medication to reduce how much your illness affects your everyday life? Select Number: 5 Total Score:: 3 Nutrition Survey - Nutrition Survey Initial Have you lost >10 lbs over the past 2 months without trying?: No Are you following a special diet at home for diabetes, low fat, or low salt?: Yes Are you interested in meeting with a dietitian for help understanding your diet?: Yes Do you eat less than 3 meals a day?: No Do you eat fatty meats (mercedes, sausage, ribs, etc), fried foods, desserts, large amounts of salad dressings, margarine, butter, or cheese most days?: No Do you have food allergies? [Enter types in comment field]: Yes Do you eat in restaurants more than 3 times a week?: Yes Do you season food with salt, seasoning salt, or garlic salt?: Yes Do you used canned, boxed, frozen meals, or soups, seasoning packets?: Yes - High Risk ; patient would benefit from both diabetic education & weight loss programs Total Score:: 6
[2022-09-30 08:34] VITALS: BP 140/84; BMI 41.5
[2022-09-30 08:50] VITALS: BP 140/84; PULSE 97; RESP 14; TEMP 36.8; O2SAT 98; BMI 41.5
== END | disposition home or self-care (01) ==
LOC: CR 07:55
PROVIDERS: PCP Family Medicine; Visit Provider Internal Medicine Cardiovascular Disease
DX: I25.10 Atherosclerotic heart disease of native coronary artery without angina pectoris (principal); I25.2 Old myocardial infarction; Z95.5 Presence of coronary angioplasty implant and graft

== ENCOUNTER 2022-10-16 09:30 | Outpatient (RCR) | payer OTHER, SELFPAY ==
[2022-09-30 08:34] VITALS: BMI 41.5
--- NOTE | 2022-10-04 08:03 | CR.HP_ITS ---
CR - History & Physical - General Arrival date:: 10/04/22 Arrival time:: 08:03 Date of Referral:: 09/09/22 Date of CR Evaluation:: 10/04/22 - Delayed due ot patient having Home Health Referring Physician: Dr. Kris Garcia Primary Diagnosis: NSTEMI - History of Present Cardiac Event Onset Date: Enter Onset Date of cardiac illnesses in Comment field below Acute Myocardial Infarction within 12 months:: Yes - Non-ST elevated myocardial infarction Type of Symptoms:: chest pain, down the left and right arms Interventions with present event:: Heart cath, decided no stent procedure needed. Were there any complications?: None - Sleep Disorder Evaluation Hx of Sleep Apnea: Yes Do you snore loudly (louder than talking or can be heard through closed doors)?: Yes Do you often feel tired/ fatigued/ sleepy during daytime?: Yes Has anyone observed you stop breathing during sleep?: No History of Hypertension (for STOP score): Yes STOP Results: Positive - Medications Home Medications: Ambulatory Orders Medication Instructions Recorded albuterol sulfate 90 mcg/actuation 2 puff inhalation Q4H PRN 08/07/20 aerosol inhaler allopurinol 300 mg tablet 300 mg PO DAILY 08/07/20 aspirin 81 mg tablet,delayed 81 mg PO DAILY 08/07/20 release (Adult Aspirin Regimen) calcium carbonate 600 mg-vitamin 1 tablet PO DAILY 08/07/20 D3 1,000 unit-vitamin K2 90 mcg tab lansoprazole 30 mg capsule,delayed 30 mg PO DAILY 08/07/20 release metoprolol succinate 50 mg 50 mg PO QHS 08/07/20 tablet,extended release 24 hr multivitamin 1 tablet PO DAILY 08/07/20 bupropion HCl 150 mg 24 hr tablet, 300 mg PO DAILY 09/11/21 extended release duloxetine 30 mg capsule,delayed 30 mg PO DAILY 01/10/22 release duloxetine 60 mg capsule,delayed 60 mg PO DAILY 01/10/22 release flurbiprofen 100 mg tablet 100 mg PO TID PRN pain #90 tabs 07/24/22 gabapentin 800 mg tablet 800 mg PO QHS #30 tabs 07/24/22 leucovorin 4 mg-pyridoxal 1 tab-cap PO QAM #30 tabs 07/24/22 phosphate 50 mg-mecobalamin 2 mg tablet (Folinic-Plus) ropinirole 0.5 mg tablet 0.5 mg PO QHS #30 tabs 07/24/22 atorvastatin 80 mg tablet 80 mg PO QHS 09/30/22 ticagrelor 90 mg tablet (Brilinta) 90 mg PO Q12H 09/30/22 - Allergies Allergies/Adverse Reactions: Allergies oak Allergy (Verified 10/04/22 08:08) Other Penicillins Allergy (Verified 09/24/22 14:46) Rash adhesive tape [plastic tape] Adverse Reaction (Severe, Verified 09/24/22 14:46) Hives Past Medical History - Covid-19 Screening Fever: No Unexplained muscle aches: No Current respiratory symptoms: No Upper respiratory infections symptoms: No Gastro-intestinal symptoms: No [id number] symptoms: No - Does have history of seasonal allergies related to [place] pollen Has High Risk Exposures ID'd by Health dept/Inf Control team: No 65 years or older:: Yes Lives in Assisted Living facility:: No Has a chronic lung disease or moderate to severe asthma:: No Has a serious heart condition:: No Immunocompromised:: No Severely obese (Body Mass Index of 40 or higher):: No Diabetic:: Yes Has chronic kidney disease undergoing dialysis:: No Has liver disease:: No - Past Medical Illness Medical History: Past Medical History (Last Reviewed 09/24/22 @ 16:[address] Jeronimo Slade, DO) Atherosclerotic heart disease of [place] coronary artery without angina pectoris I25.10 H/O non-insulin dependent diabetes mellitus Z86.39 Hyperlipemia, mixed E78.2 MVP (mitral valve prolapse) I34.1 Sleep apnea G47.30 STEMI (ST elevation myocardial infarction) Onset Date: 09/06/22 I21.3 Syncope R55 vasovagal/neurocardiogenic - Past Surgical History Surgical History: Past Surgical History (Last Reviewed 09/24/22 @ 16:[address] Jeronimo Slade, DO) History of carpal tunnel surgery Z92.89 History of neck surgery Z98.890 5 YEARS AGO [place] Stented coronary artery Onset Date: 09/06/22 Z95.5 3.5 X 26 mm Synergy SOSA to mid RCA @ [facility] ([place]) per Dr. Edwina Gonzalez - Family History Summary Family History: Family History (Last Reviewed 04/17/23 @ 11:36 by Veronica Angeles) Father Congestive heart failure Brother Hypertension Social History - Smoking History Smoking Status: Never smoker - Occupation Occupation (List type of work in comments):: Retired - and tired... with a giggle. - Hobbies, Recreation, Social Activities Hobbies: Other - Traveling to [place] Social Environment - Status Marital Status: - Current Living Arrangements Living Environment:: Alone - Safety Do you feel safe in your surroundings?: Yes Review of Systems Risk Factor Assessment - Vital Signs Temperature: 98 F Respiratory Rate: 16 Pulse Ox: 95 Blood Pressure: 125/53 - Pulse Pulse Rate: 65 Pulse Rhythm: Regular - Hypertension Blood Pressure Sitting - Left Arm: 125/53 - Blood Cholesterol/Lipids Total Cholesterol (mg/dL) Goal = less than 200 mg/dL: 78 HDL Cholesterol (mg/dL) Goal = less than 40 mg/dL: 47 LDL Cholesterol (mg/dL) Goal = less than 70 mg/dL: 24 Triglycerides (mg/dL) Goal = less than 150 mg/dL: 35 - Diabetes Diabetic History: Type II, Medication Dependent - metformin - Obesity Height: 5 ft 2 in Weight:: 131 lb 9.6 oz Weight in Pounds: 131.6 lbs Weight Source: Stated by Patient Body Mass Index (BMI): 24.0 Nutritional Referral for Obesity: No - Risk Stratification Risk Guidelines: Lowest Risk: Risk Factor for Smoking, Risk Factor for Obesity, Risk Factor for Hypertension, Risk Factor for Sedentary Lifestyle, Risk Factor for Depression, Moderate Risk: Risk Factor for Dyslipidemia, Risk Factor for Diabetes - 138 Glucose; A1c 7.1% - Family History Family History: Family History (Last Reviewed 09/02/22 @ 11:36 by Veronica Angeles) Father Congestive heart failure Brother Hypertension
[2022-10-04 08:28] VITALS: BP 125/53; PULSE 65; RESP 16; TEMP 36.6; O2SAT 95; BMI 24.0
== END 2022-10-16 23:59 ==
LOC: CR 09:30
PROVIDERS: PCP Family Medicine; Visit Provider Internal Medicine Cardiovascular Disease
DX: I25.2 Old myocardial infarction (principal)
CPT/HCPCS: 93798

== ENCOUNTER 2022-11-15 09:30 | Outpatient (RCR) | payer OTHER, SELFPAY ==
[2022-09-30 08:34] VITALS: BMI 41.5
[2022-10-17 00:48] VITALS: BP 125/53; PULSE 65; RESP 16; TEMP 36.6; O2SAT 95; BMI 24.0
--- NOTE | 2022-10-30 12:50 | CR.ITP_ITS ---
Diagnosis Exercise - 30-day Assessment - Visit Date of Eval: 10/30/22 Session #:: 11 - Physician Prescribed Exercise Modalities: Lateral [place] Frequency: 3x/week for 12 weeks [36 sessions] Intensity: 60-80% of age predicted maximum heart rate reserve Current METSs:: 3 Target Heart Rate:: 109-125 Current RPE:: 13 Maximum Excercise HR:: 121 Resting Blood Pressure: 118/78 Maximum Exercise Blood Pressure: 132/80 EKG Type: NSR to ST with rare pac, pvc. m T wave inversion noted at rest. - Outcomes & Goals Goals:: Verbalizes understanding of THR, RPE & goal METS by session 6, Documents in home exercise log/reports 30 min aerobic 5 day/wk by DC, Demonstrates accurate pulse taking by DC, Other additional outcome/goals: see below - Intervention & Plan Exercise Program Goals: Instruct on personal THR & RPE, Instruct on MET level & personal MET goal, Show patient to take own pulse /validate performance until accurate, Instruct on home exercise, Other additional plan/int - 30-day Reassessments 30 day Reassessments:: Progressing - THR explained - Physical Activity Home Exercise Physical Activity - Home Exercise: Safe Exercise, Warm-up, Self-monitoring, Cool-Down, Home Exercise > 30 min Daily, Sitting Time <3 hours/daily - Outcomes & Goals Outcomes/Goals: Demonstrates correct Warm-up/exercise Cool-Down (S3) if = 2.5 METs, Verbalizes symptoms of exercise intolerance by Session 3 (S3), Demonstrate safe equipment use (S3) & follows exercise prescrition (6), Other: See below - Intervention & Plan Plan/Intervention: Instruct warm-up & cool-down if exercising at > 2 METs, Instruct on symptoms of exercise intolerance & actions to take, Instruct & monitor on saf, Assess intial functional capacity & safety risk, Other See below - 30-day Reassessments 30 day Reassessments:: Progressing - warm up encouraged Nutrition - Initial Assessment Nutrition - 30-Day Assessment - Program Goals Nutrition Program Goals: LDL <100 optimal. 100 - 129 Near optimal. 130 - 159 Borderline High. 160 - 189 High. Total Cholesterol <200 desirable. 200 - 239 Borderline High. >/= 240 High. HDL < 40 Low >/=60 High. Triglycerides <150 desirable. <199 optimal. VlDL 5 - 40. HgbA1C <7%. BMI <25 Patient has diagnosis of Hyperlipidemia (ICD E78)?: Yes - Visit Date of Assessment:: 10/30/22 Session #:: 11 - Cholesterol/Lipids (Other Core Measures) Determine presence & major risk factors that modify LDL goal: Cigarette smoking, Hypertension or hypertensive medication, Low HDL cholesterol <40 mg/dL*, Family history of premature CHD in Male < 55 years: female <65 yearsFa, Age men > 45 years; women >/= 55 years Outcomes/Goals: Pt IDs own risk factors & lifestyle modifications by Session 10, Verbalizes symptoms of angina & response by session 3., Pt independently manages, Other Additional Outcomes/Goals: Intervention/Plan: Advocate for lipid panel cholesterol medication if applicable, Instruct on personal lipid levels & lipid goals/NCEP guidelines, Instruct on cholesterol, Other additional plan/int Referral to dietitian:: No - pt has appointment with dietitian 30-day Reassessments:: Progressing - pt has appointment with dietitian - Diabetes (Other Core Measures) Diabetes Type: Diagnosis Type II ICD-10 E11 Insulin dependent injection/pump?: No Non-Insulin Dependent?: No Do you monitor your blood sugar at home?: Yes Outcomes/Goals:: Able to state symptoms of, Able to state, Able to state, Other additional Intervention/Plan:: Instruct on, Refer to, Instruct on, Other 30-day Reassessments:: Progressing - pt has appointment with dietitian - Weight Mgt (Other Care) Height: 5 ft 2 in Weight:: 98.43 kg BMI: 39.6 Diagnosis Overweight/Obesity BMI> 30% ICD-10 E66: Yes Outcomes/Goals: Pt sets, maintains & shows weight loss goal & trend during rehab, Other additional outcomes/goals Intervention/Plan: Instruct on ideal BMI & set weight loss goal w/patient, Assist pt to ID & incorporate diet changes for weight loss by S9, Refer to Structured Weight Loss program as appropriate, Encourage goal of using 250- 300dcal per session for weight loss, Other additional plan/interventions 30 day Reassessments:: Progressing - pt has appointment with dietitian - Healthy Eating Habits Will attend diet classes:: Yes Outcomes/Goals:: Consume diet rich in vegs,fruits,whole grain/high fiber,fish,lean meat, Limit sat/trans fats,cholesterol & added salts & sugars, Other additional outcome/goals: Intervention/Plan:: Assess current eating habits, Other Additional plan/interventions 30-day Reassessments:: Progressing - Education Gave educational materials for:: Signs & symptoms of hypoglycemia, Signs & symptoms of hyperglycemia, Relate diabetes to coronary artery disease, Healthy eating Nutrition - 60-Day Assessment Nutrition - 90-Day Assessment Nutrition - Final Assessment Core - Initial Assessment Core - 30-Day Assessment - Visit Date of Eval: 10/30/22 Session #:: 11 - Medication Compliance Preventative Medication(s):: Aspirin, Ticagrelor/P2Y12 inhibitor, Statin/lipid, Beta eleonora H/O mental health issues: depression, anxiety, or addiction?: No Doesn?t believe in the benefits of treatment?: No Believes medications are unnecessary or harmful?: No Has a concern about medication side effects?: No Expresses concern over the cost of medications?: No Outcomes/Goals: Verbalizes medications,desired effect & common side effects @ DC, Pt self-reports following medication regimen, Keeps card in wallet w/medications listed by DC, Other additional outcome/goals: Interventions/plans: Instruct on medication effects & side effects, Review medication list w/patient every two weeks, Instruct importance of taking meds as ordered & assist problem solving, Other additional 30-day Reassessments:: Progressing - encpuraged to take her meds - Tobacco Use Tobacco Use: Cigarettes How many cigarettes do you smoke per day?: 6 Years Smokin Do you use smokeless tobacco?: No Outcomes/Goals: Smoking cessation achieved or maintained by discharge, Identify aids/strategies for achieving smoking cessation by session 6, Other additional outcome/goals Interventions/plan: Instruct on effects of smoking & provide smoking cessation resource, Assist pt to set quit date & provide encouragement, Assist pt to develop strategies to achieve/maintain quit date, Assist pt w/nicotine repla cement & medication for cessation success, Other additional plan/interventions 30-day Reassessments:: Progressing - pt has cut back on smoking - Hypertension Hypertension Diagnosis:: Hypertension ICD-10 I10 Resting Blood Pressure:: 118/78 [place] [employer] Hypertension Guidelines: [place] [employer] Hypertension Guidelines. Normal BP Less than 120/80. Elevated BP 120/80. Hypertension Stage 1: BP 130-139/80-89. Hypertesnion Stage 2: BP 140 or higher/90 or higher. Hypertension Crisis: BP higher than 180/120 Peak Exercise Blood Pressure:: 132/80 Outcomes/Goals: Able to verbalize/achieve optimal blood pressure <130/80, Incorporates diet changes & exercise for blood pressure control by DC, Other additional outcomes/goals Interventions/plan: Instruct on optimal blood pressure, hypertension & medications, Instruct on effects of sodium, alcohol, stress, exercise &hypertension, Other additional plan/interventions 30 day Reassessments:: Progressing - Tobacco Cessation Referral Smoking Cessation Referral:: Yes Individual Education/Counseling:: Yes Education Schedule Given:: Yes Core - 60-Day Assessment Core - 90 Day Assessment Core - Final Assessment Psychosocial - Initial Assess Psychosocial - 30-Day Assess - VIsit Date of Eval: 10/30/22 History of previous Mental disease:: Yes History of Emotional Disorders: Anxious, Depression Psychosocial - 60-Day Assess Psychosocial - 90-Day Assess Psychosocial - Final Assessmen Patient Health Questionnaire 30-Day Re-eval Assessment 1. Little interest or pleasure in doing things: Several days 2. Feeling down, depressed, or hopeless: Several days 3. Trouble falling or staying asleep, or sleeping too much: More than half the days 4. Feeling tired or having little energy: More than half the days 5. Poor appetite or overeating: Not at all 6. Feeling bad about yourself -- or that you are a failure or have let yourself or your family down: Nearly every day 7. Trouble concentrating on things, such as reading the newspaper or watching television: Not at all 8. Moving or speaking so slowly that other people could have noticed. Or the opposite - being so fidgety or restless that you have been moving around a lot more than usual: Not at all 9. Thoughts that you would be better off , or of hurting yourself in some way: Not at all How difficult have these problems made it for you to do your work, take care of things at home, or get along with other people?: Extremely difficult Total Score: 9 Self-Efficacy 30-Day Re-eval Assessment We would like to know how confident you are in doing certain activities. Please select your confidence level for:: Select your confidence level for the following using the scale 1-10 where 1 is not at all confident and 10 is totally confident. Your score is the average of all 6 responses. Fatigue: How confident are you that you can keep the fatigue caused by your disease from interfering with the things you want to do? Select Number: 3 Physical Discomfort or Pain: How confident are you that you can keep the physical discomfort or pain of your disease from interfering with the things you want to do? Select Number: 3 Emotional Distress: How confident are you that you can keep the emotional distress caused by your disease from interfering with the things you want to do? Other Symptoms or Health Problems: How confident are you that you can keep other symptoms or health problems from interfering with the things you want to do? Select Number: 3 Different Tasks and Activities: How confident are you that you can do the different tasks and activities needed to manage your health condition so as to reduce your need to see a doctor? Select Number: 3 Medication: How confident are you that you can do things other than just taking medication to reduce how much your illness affects your everyday life? Select Number: 5 Nutrition Survey
[2022-10-30 13:07] VITALS: BP 118/78; BP 132/80; BMI 39.6
== END 2022-11-15 23:59 ==
LOC: CR 09:30
PROVIDERS: PCP Family Medicine; Referring Provider Internal Medicine Cardiovascular Disease; Visit Provider Internal Medicine Cardiovascular Disease
DX: Z95.5 Presence of coronary angioplasty implant and graft (principal); I21.3 ST elevation (STEMI) myocardial infarction of unspecified site
CPT/HCPCS: 93798

== ENCOUNTER 2022-12-16 09:30 | Outpatient (RCR) | payer OTHER, SELFPAY ==
[2022-10-30 13:07] VITALS: BMI 39.6
[2022-11-16 01:33] VITALS: BP 118/78; BP 125/53; BP 132/80; PULSE 65; RESP 16; TEMP 36.6; O2SAT 95; BMI 24.0
--- NOTE | 2022-11-29 11:05 | PCM.CR.ITP ---
Exercise - Initial Assessment Visit Session #:: 21 Nutrition - Initial Assessment Weight Mgt (Other Care) Height: 5 ft 2 in Weight:: 223 lb 8 oz BMI: 40.8 Core - Initial Assessment Tobacco Use Years Smokin Psychosocial - Initial Assess Target Goals Target Goals Patient Health Questionnaire PHQ-9 Screening 60-Day Re-eval Assessment: 1. Little interest or pleasure in doing things: Several days 2. Feeling down, depressed, or hopeless: Several days 3. Trouble falling or staying asleep, or sleeping too much: More than half the days 4. Feeling tired or having little energy: More than half the days 5. Poor appetite or overeating: Not at all 6. Feeling bad about yourself -- or that you are a failure or have let yourself or your family down: Nearly every day 7. Trouble concentrating on things, such as reading the newspaper or watching television: Not at all 8. Moving or speaking so slowly that other people could have noticed. Or the opposite - being so fidgety or restless that you have been moving around a lot more than usual: Not at all 9. Thoughts that you would be better off , or of hurting yourself in some way: Not at all How difficult have these problems made it for you to do your work, take care of things at home, or get along with other people?: Extremely difficult Total Score: 9 Self-Efficacy 6-Item Scale 60-Day Re-eval Assessment: We would like to know how confident you are in doing certain activities. Please select your confidence level for: Fatigue Select Number: 3 Physical Discomfort or Pain Select Number: 3 Emotional Distress Select Number: 3 Other Symptoms or Health Problems Select Number: 3 Different Tasks and Activities Select Number: 3 Medication Select Number: 5 Total Score:: 3 Nutrition Survey Nutrition Survey Instructions Scoring Instructions Exercise - 60-day Assessment Visit Date of Eval: 11/29/22 Session #:: 21 Physician Prescribed Exercise Modalities: NuStep, SciFit and Lateral [employer] Frequency: 3x/week for 12 weeks [36 sessions] Intensity: 60-80% of age predicted maximum heart rate reserve Current METSs:: 3 Target Heart Rate:: 109-125 Current RPE:: 13-14 Maximum Excercise HR:: 120 Resting Blood Pressure: 132/82 Maximum Exercise Blood Pressure: 138/84 EKG Type: NSR to ST with [place] inversion at rest Outcomes & Goals Goals:: Verbalizes understanding of THR, RPE & goal METS by session 6, Documents in home exercise log/reports 30 min aerobic 5 day/wk by DC, Demonstrates accurate pulse taking by DC and Other additional outcome/goals: see below Intervention & Plan Exercise Program Goals: Instruct on personal THR & RPE, Instruct on MET level & personal MET goal, Show patient to take own pulse /validate performance until accurate, Instruct on home exercise and Other additional plan/int 30-day Reassessments 30 day Reassessments:: Progressing Reassessment Notes & Comments:: pulse taking demonstrated Physical Activity Home Exercise Physical Activity - Home Exercise: Safe Exercise, Warm-up, Self-monitoring, Cool-Down, Home Exercise > 30 min Daily and Sitting Time <3 hours/daily Outcomes & Goals Outcomes/Goals: Demonstrates correct Warm-up/exercise Cool-Down (S3) if = 2.5 METs, Verbalizes symptoms of exercise intolerance by Session 3 (S3), Demonstrate safe equipment use (S3) & follows exercise prescrition (6) and Other: See below Intervention & Plan Plan/Intervention: Instruct warm-up & cool-down if exercising at > 2 METs, Instruct on symptoms of exercise intolerance & actions to take, Instruct & monitor on saf, Assess intial functional capacity & safety risk and Other See below 30-day Reassessments 30 day Reassessments:: Progressing Reassessment Notes & Comments:: cool down encouraged Nutrition - 30-Day Assessment Weight Mgt (Other Care) Height: 5 ft 2 in Weight:: 223 lb 8 oz BMI: 40.8 Nutrition - 60-Day Assessment Program Goals Nutrition Program Goals Patient has diagnosis of Hyperlipidemia (ICD E78)?: Yes Visit Date of Eval: 11/29/22 Session #:: 21 Cholesterol/Lipids (Other Core Measures) Determine presence & major risk factors that modify LDL goal: Cigarette smoking, Hypertension or hypertensive medication, Low HDL cholesterol <40 mg/dL*, Family history of premature CHD in Male < 55 years: female <65 yearsFa and Age men > 45 years; women >/= 55 years Outcomes/Goals: Pt IDs own risk factors & lifestyle modifications by Session 10, Verbalizes symptoms of angina & response by session 3., Pt independently manages and Other Additional Outcomes/Goals: Intervention/Plan: Advocate for lipid panel cholesterol medication if applicable, Instruct on personal lipid levels & lipid goals/NCEP guidelines, Instruct on cholesterol and Other additional plan/int Referral to dietitian:: No (pt has met with dietitian ) 30-day Reassessments:: Met Diabetes (Other Core Measures) Diabetes Type: Diagnosis Type II ICD-10 E11 Fasting blood glucose:: 172 Insulin dependent injection/pump?: No Non-Insulin Dependent?: No Do you monitor your blood sugar at home?: Yes Outcomes/Goals:: Able to state symptoms of, Able to state, Able to state and Other additional Intervention/Plan:: Instruct on, Refer to, Instruct on and Other 30-day Reassessments:: Met Weight Mgt (Other Care) Height: 5 ft 2 in Weight:: 223 lb 8 oz BMI: 40.8 Diagnosis Overweight/Obesity BMI> 30% ICD-10 E66: Yes Diagnosis High BMI/Morbid Obesity BMI> 35% ICD-10 Z68: Yes Outcomes/Goals: Pt sets, maintains & shows weight loss goal & trend during rehab and Other additional outcomes/goals Intervention/Plan: Instruct on ideal BMI & set weight loss goal w/patient, Assist pt to ID & incorporate diet changes for weight loss by S9, Refer to Structured Weight Loss program as appropriate, Encourage goal of using 250-300dcal per session for weight loss and Other additional plan/interventions 30 day Reassessments:: Progressing Reassessment Notes & Comments:: pt met with dietitian Healthy Eating Habits Will attend diet classes:: Yes Outcomes/Goals:: Consume diet rich in vegs,fruits,whole grain/high fiber,fish,lean meat, Limit sat/trans fats,cholesterol & added salts & sugars and Other additional outcome/goals: Intervention/Plan:: Assess current eating habits and Other Additional plan/interventions 30-day Reassessments:: Met Education Gave educational materials for:: Signs & symptoms of hypoglycemia, Signs & symptoms of hyperglycemia, Relate diabetes to coronary artery disease and Healthy eating Core - 30-Day Assessment Visit Date of Eval: 11/29/22 Session #:: 21 Medication Compliance Preventative Medication(s):: Aspirin, Ticagrelor/P2Y12 inhibitor, Statin/lipid and Beta eleonora H/O mental health issues: depression, anxiety, or addiction?: No Doesn?t believe in the benefits of treatment?: No Believes medications are unnecessary or harmful?: No Has a concern about medication side effects?: No Expresses concern over the cost of medications?: No Outcomes/Goals: Verbalizes medications,desired effect & common side effects @ DC, Pt self-reports following medication regimen, Keeps card in wallet w/medications listed by DC and Other additional outcome/goals: Interventions/plans: Instruct on medication effects & side effects, Review medication list w/patient every two weeks, Instruct importance of taking meds as ordered & assist problem solving and Other additional 30-day Reassessments:: Progressing Reassessment Notes & Comments:: Pt encouraged to take her meds Tobacco Use Tobacco Use: Cigarettes How many cigarettes do you smoke per day?: 6 Years Smokin Outcomes/Goals: Smoking cessation achieved or maintained by discharge, Identify aids/strategies for achieving smoking cessation by session 6 and Other additional outcome/goals Interventions/plan: Instruct on effects of smoking & provide smoking cessation resource, Assist pt to set quit date & provide encouragement, Assist pt to develop strategies to achieve/maintain quit date, Assist pt w/nicotine replacement & medication for cessation success and Other additional plan/interventions 30-day Reassessments:: Progressing Reassessment Notes & Comments:: pt has cut back on her smoking Hypertension Hypertension Diagnosis:: Hypertension ICD-10 I10 Resting Blood Pressure:: 132/82 [place] [employer] Hypertension Guidelines Peak Exercise Blood Pressure:: 138/84 Outcomes/Goals: Able to verbalize/achieve optimal blood pressure <130/80, Incorporates diet changes & exercise for blood pressure control by DC and Other additional outcomes/goals Interventions/plan: Instruct on optimal blood pressure, hypertension & medications, Instruct on effects of sodium, alcohol, stress, exercise &hypertension and Other additional plan/interventions 30 day Reassessments:: Progressing Reassessment Notes & Comments:: pt encouraged to take his meds Tobacco Cessation Referral Smoking Cessation Referral:: Yes Individual Education/Counseling:: Yes Education Schedule Given:: Yes Psychosocial - 30-Day Assess Target Goals Target Goals Psychosocial - 60-Day Assess VIsit Date of Eval: 11/29/22 Session #:: 21 History of previous Mental disease:: Yes History of Emotional Disorders: Anxious and Depression Target Goals Target Goals Psychosocial - 90-Day Assess Target Goals Target Goals Psychosocial - Final Assessmen Target Goals Target Goals Nutrition - 90-Day Assessment Weight Mgt (Other Care) Height: 5 ft 2 in Weight:: 223 lb 8 oz BMI: 40.8 Nutrition - Final Assessment Weight Mgt (Other Care) Height: 5 ft 2 in Weight:: 223 lb 8 oz BMI: 40.8
[2022-11-29 11:19] VITALS: BP 132/82; BMI 40.8
== END 2022-12-16 23:59 ==
LOC: CR 09:30
PROVIDERS: PCP Family Medicine; Referring Provider Internal Medicine Cardiovascular Disease; Visit Provider Internal Medicine Cardiovascular Disease
DX: I10 Essential (primary) hypertension (principal); Z95.5 Presence of coronary angioplasty implant and graft; I21.3 ST elevation (STEMI) myocardial infarction of unspecified site
CPT/HCPCS: 93798; 97802

== ENCOUNTER 2023-01-15 09:15 | Outpatient (RCR) | payer OTHER, SELFPAY ==
[2022-11-29 11:19] VITALS: BMI 40.8
[2022-12-17 00:37] VITALS: BP 118/78; BP 125/53; BP 132/80; BP 132/82; PULSE 65; RESP 16; TEMP 36.6; O2SAT 95; BMI 24.0
--- NOTE | 2022-12-30 11:36 | PCM.CR.ITP ---
Nutrition - Initial Assessment Weight Mgt (Other Care) Height: 5 ft 2 in Weight:: 225 lb BMI: 41.1 Psychosocial - Initial Assess Target Goals Target Goals Patient Health Questionnaire PHQ-9 Screening 90-Day Re-eval Assessment: 1. Little interest or pleasure in doing things: Several days 2. Feeling down, depressed, or hopeless: Several days 3. Trouble falling or staying asleep, or sleeping too much: More than half the days 4. Feeling tired or having little energy: More than half the days 5. Poor appetite or overeating: Not at all 6. Feeling bad about yourself -- or that you are a failure or have let yourself or your family down: Nearly every day 7. Trouble concentrating on things, such as reading the newspaper or watching television: Not at all 8. Moving or speaking so slowly that other people could have noticed. Or the opposite - being so fidgety or restless that you have been moving around a lot more than usual: Not at all 9. Thoughts that you would be better off , or of hurting yourself in some way: Not at all How difficult have these problems made it for you to do your work, take care of things at home, or get along with other people?: Extremely difficult Total Score: 9 Self-Efficacy 6-Item Scale 90-Day Re-eval Assessment: We would like to know how confident you are in doing certain activities. Please select your confidence level for: Fatigue Select Number: 3 Physical Discomfort or Pain Select Number: 3 Emotional Distress Select Number: 3 Other Symptoms or Health Problems Select Number: 3 Different Tasks and Activities Select Number: 3 Medication Select Number: 3 Total Score:: 3 Nutrition Survey Nutrition Survey Instructions Scoring Instructions Exercise - 90-day Assessment Visit Date of Eval: 12/30/22 Session #:: 30 Physician Prescribed Exercise Modalities: NuStep, SciFit and Lateral Hook And Eye Machine Operator Frequency: 3x/week for 12 weeks [36 sessions] Intensity: 60-80% of age predicted maximum heart rate reserve Duration: 30 - 45 minutes Current METSs:: 3 Target Heart Rate:: 109-125 Current RPE:: 14 Maximum Excercise HR:: 115 Resting Blood Pressure: 112/68 Maximum Exercise Blood Pressure: 150/90 EKG Type: NSR to ST Outcomes & Goals Goals:: Verbalizes understanding of THR, RPE & goal METS by session 6, Documents in home exercise log/reports 30 min aerobic 5 day/wk by DC, Demonstrates accurate pulse taking by DC and Other additional outcome/goals: see below Intervention & Plan Exercise Program Goals: Instruct on personal THR & RPE, Instruct on MET level & personal MET goal, Show patient to take own pulse /validate performance until accurate, Instruct on home exercise and Other additional plan/int 30-day Reassessments 30 day Reassessments:: Met Physical Activity Home Exercise Physical Activity - Home Exercise: Safe Exercise, Warm-up, Self-monitoring, Cool-Down, Home Exercise > 30 min Daily and Sitting Time <3 hours/daily Outcomes & Goals Outcomes/Goals: Demonstrates correct Warm-up/exercise Cool-Down (S3) if = 2.5 METs, Verbalizes symptoms of exercise intolerance by Session 3 (S3), Demonstrate safe equipment use (S3) & follows exercise prescrition (6) and Other: See below Intervention & Plan Plan/Intervention: Instruct warm-up & cool-down if exercising at > 2 METs, Instruct on symptoms of exercise intolerance & actions to take, Instruct & monitor on saf, Assess intial functional capacity & safety risk and Other See below 30-day Reassessments 30 day Reassessments:: Met Nutrition - 30-Day Assessment Weight Mgt (Other Care) Height: 5 ft 2 in Weight:: 225 lb BMI: 41.1 Nutrition - 60-Day Assessment Weight Mgt (Other Care) Height: 5 ft 2 in Weight:: 225 lb BMI: 41.1 Core - 90 Day Assessment Medication Compliance Preventative Medication(s):: Aspirin, Ticagrelor/P2Y12 inhibitor, Statin/lipid and Beta eleonora Doesn?t believe in the benefits of treatment?: No Believes medications are unnecessary or harmful?: No Has a concern about medication side effects?: No Expresses concern over the cost of medications?: No Outcomes/Goals: Verbalizes medications,desired effect & common side effects @ DC, Pt self-reports following medication regimen, Keeps card in wallet w/medications listed by DC and Other additional outcome/goals: Interventions/plans: Instruct on medication effects & side effects, Review medication list w/patient every two weeks, Instruct importance of taking meds as ordered & assist problem solving and Other additional 30-day Reassessments:: Met Tobacco Use Tobacco Use: Cigarettes How many cigarettes do you smoke per day?: 6 Years Smokin Outcomes/Goals: Smoking cessation achieved or maintained by discharge, Identify aids/strategies for achieving smoking cessation by session 6 and Other additional outcome/goals Interventions/plan: Instruct on effects of smoking & provide smoking cessation resource, Assist pt to set quit date & provide encouragement, Assist pt to develop strategies to achieve/maintain quit date, Assist pt w/nicotine replacement & medication for cessation success and Other additional plan/interventions 30-day Reassessments:: Progressing Reassessment Notes & Comments:: pt ilyafelix cut back her smoking Hypertension Hypertension Diagnosis:: Hypertension ICD-10 I10 Resting Blood Pressure:: 112/68 [place] [employer] Hypertension Guidelines Peak Exercise Blood Pressure:: 150/90 Outcomes/Goals: Able to verbalize/achieve optimal blood pressure <130/80, Incorporates diet changes & exercise for blood pressure control by DC and Other additional outcomes/goals Interventions/plan: Instruct on optimal blood pressure, hypertension & medications, Instruct on effects of sodium, alcohol, stress, exercise &hypertension and Other additional plan/interventions 30 day Reassessments:: Met Tobacco Cessation Referral Smoking Cessation Referral:: Yes Individual Education/Counseling:: Yes Education Schedule Given:: Yes Psychosocial - 30-Day Assess Target Goals Target Goals Psychosocial - 60-Day Assess Target Goals Target Goals Psychosocial - 90-Day Assess VIsit Date of Eval: 12/30/22 History of previous Mental disease:: Yes History of Emotional Disorders: Anxious and Depression Target Goals Target Goals Psychosocial - Final Assessmen Target Goals Target Goals Nutrition - 90-Day Assessment Program Goals Nutrition Program Goals Patient has diagnosis of Hyperlipidemia (ICD E78)?: Yes Visit Date of Eval: 12/30/22 Session #:: 30 Cholesterol/Lipids (Other Core Measures) Determine presence & major risk factors that modify LDL goal: Cigarette smoking, Hypertension or hypertensive medication, Low HDL cholesterol <40 mg/dL*, Family history of premature CHD in Male < 55 years: female <65 yearsFa and Age men > 45 years; women >/= 55 years Outcomes/Goals: Pt IDs own risk factors & lifestyle modifications by Session 10, Verbalizes symptoms of angina & response by session 3., Pt independently manages and Other Additional Outcomes/Goals: Intervention/Plan: Advocate for lipid panel cholesterol medication if applicable, Instruct on personal lipid levels & lipid goals/NCEP guidelines, Instruct on cholesterol and Other additional plan/int 30-day Reassessments:: Met Reassessment Notes & Comments:: pt has met with dietitian Diabetes (Other Core Measures) Diabetes Type: Diagnosis Type II ICD-10 E11 Fasting blood glucose:: 94 Insulin dependent injection/pump?: No Non-Insulin Dependent?: No Do you monitor your blood sugar at home?: Yes Outcomes/Goals:: Able to state symptoms of, Able to state, Able to state and Other additional Intervention/Plan:: Instruct on, Refer to, Instruct on and Other 30-day Reassessments:: Met Weight Mgt (Other Care) Height: 5 ft 2 in Weight:: 225 lb BMI: 41.1 Diagnosis Overweight/Obesity BMI> 30% ICD-10 E66: Yes Diagnosis High BMI/Morbid Obesity BMI> 35% ICD-10 Z68: Yes Outcomes/Goals: Pt sets, maintains & shows weight loss goal & trend during rehab and Other additional outcomes/goals Intervention/Plan: Instruct on ideal BMI & set weight loss goal w/patient, Assist pt to ID & incorporate diet changes for weight loss by S9, Refer to Structured Weight Loss program as appropriate, Encourage goal of using 250-300dcal per session for weight loss and Other additional plan/interventions 30 day Reassessments:: Progressing Reassessment Notes & Comments:: pt to attend nutrition class and has met with dietitian Healthy Eating Habits Will attend diet classes:: Yes Outcomes/Goals:: Consume diet rich in vegs,fruits,whole grain/high fiber,fish,lean meat, Limit sat/trans fats,cholesterol & added salts & sugars and Other additional outcome/goals: Intervention/Plan:: Assess current eating habits and Other Additional plan/interventions 30-day Reassessments:: Met Education Gave educational materials for:: Signs & symptoms of hypoglycemia, Signs & symptoms of hyperglycemia, Relate diabetes to coronary artery disease and Healthy eating Nutrition - Final Assessment Weight Mgt (Other Care) Height: 5 ft 2 in Weight:: 225 lb BMI: 41.1
[2022-12-30 11:46] VITALS: BP 112/68; BMI 41.1
== END 2023-01-16 23:59 ==
LOC: CR 09:15
PROVIDERS: PCP Family Medicine; Referring Provider Internal Medicine Cardiovascular Disease; Visit Provider Internal Medicine Cardiovascular Disease
DX: Z95.5 Presence of coronary angioplasty implant and graft (principal)
CPT/HCPCS: 93798; 97803

== ENCOUNTER 2023-01-17 06:38 | Outpatient (RCR) | payer OTHER, SELFPAY ==
[2022-12-30 11:46] VITALS: BMI 41.1
[2023-01-17 00:37] VITALS: BP 112/68; BP 118/78; BP 125/53; BP 132/80; BP 132/82; PULSE 65; RESP 16; TEMP 36.6; O2SAT 95; BMI 24.0
== END 2023-02-15 23:59 ==
LOC: CR 06:38
PROVIDERS: PCP Family Medicine; Referring Provider Internal Medicine Cardiovascular Disease; Visit Provider Internal Medicine Cardiovascular Disease
DX: Z95.5 Presence of coronary angioplasty implant and graft (principal); E11.9 Type 2 diabetes mellitus without complications; E78.5 Hyperlipidemia, unspecified; I34.1 Nonrheumatic mitral (valve) prolapse; G47.30 Sleep apnea, unspecified; R55 Syncope and collapse
CPT/HCPCS: 93798

== ENCOUNTER → 2023-09-08 | Outpatient (CLI) | payer OTHER, SELFPAY ==
[2022-12-30 11:46] VITALS: BMI 41.1
--- NOTE | 2023-09-08 12:17 | MRI_ITS ---
INDICATION: Pain -- L4-5 Lumbar Spondylolisthesis EXAMINATION: MRI - MR Spine Lumbar W/O Contrast TECHNIQUE: Multiplanar and multisequence MR images of the lumbar spine. IV Contrast Dosage and Agent: None. COMPARISON: 04/25/2022 FINDINGS: VERTEBRAE: Vertebral body heights are preserved. Normal vertebral bodies and posterior elements. VERTEBRAL ALIGNMENT: No spondylolisthesis. There is preservation of the normal lumbar lordosis. CORD: Normal position and signal intensity of the conus medullaris. L1/L2: Normal disc height and morphology. Normal spinal canal, lateral recesses and neuroforamina. L2/L3: Normal disc height and morphology. Normal spinal canal, lateral recesses and neuroforamina. L3/L4: Normal disc height and morphology. Normal spinal canal, lateral recesses and neuroforamina. L4/L5: Small circumferential disc bulge, 5 mm spondylolisthesis. Advanced degenerative facet arthropathy with a synovial cyst arising from the left facet joint measuring 8 mm in diameter impinging on the left posterior lateral aspect of the thecal sac. There is mild narrowing of the neural foramina bilaterally at L4/5. L5/S1: Mild degenerative spondylosis. Normal spinal canal, lateral recesses and neuroforamina. SOFT TISSUES: Unremarkable. MRI/Spine Lumbar (Routine) IMPRESSION: Multilevel degenerative changes more prominent at L4/5 have progressed since the previous study. There is now a synovial cyst on the left side at L4-5 impinging on the posterior lateral aspect of the thecal sac. Electronically Signed: Golden Mccracken MD at 8:03 EDT ,
== END | disposition home or self-care (01) ==
PROVIDERS: Referring Provider Orthopaedic Surgery Orthopaedic Surgery of the Spine; Visit Provider Orthopaedic Surgery Orthopaedic Surgery of the Spine
DX: M43.16 Spondylolisthesis, lumbar region (principal)
CPT/HCPCS: 72148

== ENCOUNTER 2023-10-20 10:03 | Inpatient (IN) | payer OTHER, SELFPAY ==
[2022-12-30 11:46] VITALS: BMI 41.1
[2023-10-09 16:40] LABS: Absolute Lymphocyte Count 3.53 X10^3/uL (0.83-4.51); Absolute Neutrophil Count 3.8 X10^3/uL (2.0-7.7); Basophil# 0.08 X10^3/uL; Eosinophil# 0.24 X10^3/uL; Eosinophils% 2.9 % (0-5); Hematocrit 36.2 % (37-47); Hemoglobin 11.1 g/dL (12.0-15.0); Lymphocyte # 3.53 X10^3/ul (0.83-4.51); Lymphocyte % 43.3 % (19-41); Mean Corp Hgb Conc 30.7 g/dL (32-36); Mean Corpuscular Hgb 26.4 pg (27.0-32.0); Mean Platelet Vol. 10.4 fl (6.2-12.0); Monocyte# 0.51 X10^3/uL; Monocyte% 6.3 % (0-10); NRBC Flagged by Analyzer 0 % (0-5); Neutrophil # 3.76 X10^3/uL (2.7-7.7); Platelet Count 368 K/mm3 (150-450); RBC Distribution Width CV 17.8 % (11.6-14.6); RBC Distribution Width SD 55.9 fl (35.1-43.9); Red Blood Count 4.21 M/mm3 (4.2-5.4); White Blood Count 8.2 K/mm3 (4.4-11.0)
[2023-10-09 17:09] LABS: Anion Gap 6 (5-15); BUN 13 mg/dL (7-18); BUN/Creat Ratio 10.4 RATIO (10-20); Calcium,Total 9.7 mg/dL (8.5-10.1); Chloride 106 mmol/L (98-107); Creatinine, Serum 1.25 mg/dL (0.55-1.02); EST Glomerular Filtration Rate 47 mL/min (>60); Est Glom Filt Rate - Afr Amer 57 mL/min (>60); Glucose 192 mg/dL (74-106); Potassium 3.7 mmol/L (3.5-5.1); Sodium Level 138 mmol/L (136-145)
[2023-10-09 17:19] LABS: Hemoglobin A1c 6.5 % (3.8-5.6)
[2023-10-09 17:49] LABS: HIV - WCH Non-Reactive (Nonreactive); Hepatitis B Surface Antibody Non-Reactive; Hepatitis C Antibody Non-Reactive (Nonreactive)
[2023-10-10 07:58] LABS: Magnesium 1.9 mg/dL (1.6-2.6)
[2023-10-11 08:11] LABS: Hepatitis A AB, Total Positive (Negative)
[2023-10-20] VITALS (18 sets, daily range): BP systolic 81–125; BP diastolic 41–92; PULSE 86–100; RESP 14–18; TEMP 36–36.7; O2SAT 90–100; BMI 41.5
[2023-10-20] MEDS: Acetaminophen 500 MG Tablet 1000 MG PO ×2 (11:05→22:33)
[2023-10-20] MEDS: Lactated Ringers 1,000 ML 15 ML IV ×2 (11:05→17:27)
[2023-10-20] MEDS: Magnesium 2 GM for ERAS IV (11:12)
[2023-10-20 11:24] LABS: Bedside Glucose 167 mg/dL (74-106)
--- NOTE | 2023-10-20 11:53 | HP.PCM_ITS ---
History and Physical Date of Admission: 10/20/23 MR#: [id number] Acct: [id number] Name: BRIAN CARMEN Rep #: [id number] : 1970 Provider: Dr. Aly Zuluaga MD Age/Sex: 53/F [place] [facility] [place] [facility] [place] Status: Signed Intake Vital Signs 08/26/2412:05 Height 5 ft 2 in Weight: 234 lb BMI 42.7 Intake Visit Reasons: lumbar spine Chief Complaint: Pre-op lumbar spine Accompanied by: Self Is patient in pain?: Yes Allergies Environmental Allergies: Uncoded Allergy (Unknown, Verified 10/10/23 14:50) RashPenicillins Allergy (Unknown, Verified 10/10/23 14:50) Rashsoap Allergy (Unknown, Verified 10/10/23 14:50) itching, rashadhesive tape (plastic tape) Adverse Reaction (Severe, Verified 10/10/23 14:50) Hives Medications ?Medication ?Instructions ?Recorded ?Confirmed ?Type albuterol sulfate 90 mcg/actuation 2 puff inhalation Q4H PRN 08/07/20 10/10/23 History aerosol inhaler shortness of breath or wheezing allopurinol 300 mg tablet 300 mg PO DAILY GOUT 08/07/20 10/10/23 History aspirin 81 mg tablet,delayed 81 mg PO DAILY SUPPLEMENT 08/07/20 10/10/23 History release (Adult Aspirin Regimen) ticagrelor 90 mg tablet (Brilinta) 90 mg PO DAILY BLOOD THINNER 09/30/22 10/10/23 History bupropion HCl 300 mg 24 hr tablet, 300 mg PO DAILY DEPRESSION 11/05/22 10/10/23 History extended release cholecalciferol (vitamin D3) 50 50 mcg PO DAILY SUPPLEMENT 11/05/22 10/10/23 History mcg (2,000 unit) capsule fluticasone propionate 100 1 inh inhalation BID ASTHMA 11/05/22 10/10/23 History mcg/actuation blister powder for inhalation (Flovent Diskus) lamotrigine 100 mg tablet 100 mg PO DAILY MOOD 11/05/22 10/10/23 History lansoprazole 30 mg capsule,delayed 30 mg PO BID GERD 11/05/22 10/10/23 History release metformin 500 mg tablet,extended 500 mg PO BID DIABETES 11/05/22 10/10/23 History release 24 hr pioglitazone 30 mg tablet 30 mg PO DAILY DIABETES 11/05/22 10/10/23 History duloxetine 30 mg capsule,delayed 90 mg PO DAILY DEPRESSION 11/06/22 10/10/23 History release ropinirole 0.5 mg tablet 0.5 mg PO QHS RLS #30 tabs 02/05/23 10/10/23 Rx ascorbic acid (vitamin C) 500 mg 500 mg PO DAILY SUPPLEMENT 08/27/23 10/10/23 History tablet atorvastatin 40 mg tablet 80 mg PO QHS CHOLESTEROL 08/27/23 10/10/23 History coenzyme N08-dbaragz E 100 mg-100 1 cap PO DAILY SUPPLEMENT 08/27/23 10/10/23 History unit capsule gabapentin 100 mg capsule 100 mg PO QHS PAIN 08/27/23 10/10/23 History magnesium oxide 400 mg PO DAILY SUPPLEMENT 08/27/23 10/10/23 History metoprolol succinate 25 mg 50 mg PO QHS HEART 08/27/23 10/10/23 History tablet,extended release 24 hr estradiol 0.01% (0.1 mg/gram) vaginal 10/10/23 10/10/23 History vaginal cream fluconazole 150 mg tablet 150 mg PO ONCE 10/10/23 10/10/23 History PFSH Medical History Sepsis UTI (urinary tract infection) Wears glasses Wears dentures Alcohol use Diabetes Injury of head and neck Dietary restriction Asthma Shortness of breath on exertion History of pain when walking History of echocardiogram History of stress test Cardiology follow-up encounter Vitamin D deficiency Smoker PCOS (polycystic ovarian syndrome) Obesity Herniated cervical disc GERD (gastroesophageal reflux disease) Fibromyalgia Essential hypertension Atherosclerotic heart disease of [place] coronary artery without angina pectoris STEMI (ST elevation myocardial infarction) (09/06/22) Peripheral vestibulopathy DDD (degenerative disc disease), lumbar Chronic SI joint pain Depression Anxiety Polyneuropathy Chronic low back pain with bilateral sciatica Restless legs syndrome Neck pain MVP (mitral valve prolapse) Sleep apnea Hyperlipemia, mixed H/O non-insulin dependent diabetes mellitus Syncope Surgical History Hx of colonoscopy Hx of dilation and curettage Hx of fusion of cervical spine History of eye surgery Hx of unilateral salpingectomy Stented coronary artery (09/06/22) History of carpal tunnel surgery (~2011) Family History Father Congestive heart failure DiabetesBrother Hypertension Heart diseaseMother Fibromyalgia Vitamin D deficiencyAunt Lupus Social History household members: spouse Smoking Status: Current some day smoker tobacco type: cigarettes Tobacco: How many years used: 29 second hand exposure: Yes alcohol intake: current alcohol intake frequency: holidays/special occasions only substance use type: does not use caffeine: Yes Type: carbonated beverages Number of servings: 6 marisol/catholic: Faith seatbelt use: always HPI lumbar spine Details: This documentation accurately reflects the service provided and the decisions made by me, Dr. Aly Zuluaga MD 10/10/23 [id number]. Part of today?s visit was documented by Beronica Aviles ATC, acting as scribe. BRIAN CARMEN is a 53 year old F here today for pre-op for anterior and posterior fusion of L4-5 DOS 10/20/2023. Patient states her lumbar spine always bothers her. She was recently in the hospital for a UTI that turned into sepsis and got into her kidneys. Brian continues to have low back pain with bilateral lower extremity numbness and difficulty walking distances. She was recently admitted for UTI and was placed on antibiotics. She finished antibiotics last week. 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 Following is a previous history. 09/10/23: BRIAN CARMEN is a 52 year old F here today for MRI review of the lumbar spine. Patient states she has been doing a lot of driving today so her pain isn't too bad. She states it bothers her more when she is up and moving a lot. Patient states her lumbar spine pain has pretty much stayed the same since the last time she was seen. Patient states she takes Tylenol for the pain but it does not give her any relief. Brian back pain bilateral lower extremity numbness and difficulty walking distances. She just had a recent cardiology visit and is excited that she should be able to discontinue the Brilinta now and proceed with surgery. Following is a previous history: 08/27/23: BRIAN CARMEN is a 52 year old F here today for Lumbar spine pain. Patient states that her back pain has been bothering her for 20 years. Patient had a fall 25-30 years ago and she hurt her back. Patient has lower back pain on both sides but the right is worse then the left and only one time has the pain gone down her right leg. Patient states that she has seen Dr Brenner for injection. Patient hasn't done Physical therapy recently but she has done a lot of therapy for her back. Patient takes Tylenol for pain. Patient uses heat and it helps some Patient states it helps more with her arthritis. Patient sits 8 hours for her job and she will use the heat a lot during then. Patient states standing and walking is worse then sitting. Patient has had a pinched nerve before. Patient states a year ago she was about to have surgery for her SI joint and the next day she had a heart attack. Brian underwent 1 cardiac stent and was placed on Brilinta along with her previous baby aspirin. She says that she is now at her 1 year anniversary of the stent and will likely be discontinued of the Brilinta. She continues to have significant low back pain. She does not have any radicular symptoms but she does mention of numbness in both lower extremities going into the anterior leg as well as dorsum of the foot. She ment ions that the numbness worsens after she walks a certain distance. She relies on the shopping cart while shopping. She also mentions of midline low back pain in addition to the prior paraspinal pain for which she was to undergo right- sided sacroiliac joint fusion last year with Dr. Wing. She notices that her right side continues to bother her but she also has left-sided symptoms in the same paraspinal region. She finds herself stooping forward after walking certain distance. She denies any difficulty with weightbearing. She has had multiple epidural as well as SI joint injections by Dr. Brenner prior to her heart attack last year. She is scheduled to undergo multiple cardiac testing in the next few weeks. Her last A1c was 7.2. Ortho Exam General General: Yes no acute distress Neurologic: Yes alert and Yes oriented x3 Spine SPINE TESTING CERVICAL THORACIC LUMBAR Musculoskeletal Strength 0=absent - 5=normal Details: Examination of the lower back shows midline and paraspinal tenderness worse on the right side in the lower lumbar spine. Pain over the bilateral PSIS is also noticed worse on the right side. Neurologic evaluation of lower extremity shows 5 x 5 power normal shows normal sensations in all dermatomes. Figure 4 Lit testing elicits pain in the left posterior hip region. Active straight leg raise test is negative bilaterally. [place] test positive bilaterally. Coding Level of Care Code Off vis,est,level 4 Diagnoses Spondylolisthesis, lumbar region M43.16 Sacroiliitis M46.1 Time Spent (min) 35 Assessment and Plan Assessment and Plan (1) Spondylolisthesis, lumbar region: Status: Acute (2) Sacroiliitis: Status: Acute Plan I again reviewed her x-rays and MRI of the lumbar spine done recently. These show L4-5 grade 1 spondylolisthesis with mild dynamic instability. MRI shows left facet synovial cyst and small thickening of the right as well causing stenosis in the lateral recess bilaterally. She has increased sclerosis in the right SI joint compared to the left suggestive of arthritis. I again explained to her the imaging findings in detail. She did have significant SI joint pain last year for which she was contemplating surgery, her recent imaging is suggestive that L4-5 unstable spondylolisthesis with facet cyst and claudication related numbness in bilateral lower extremity seems to be a bigger problem for her. I recommend options of treatment which include continued nonoperative measures versus surgery. Patient has had numerous injections including epidural injections as well as radiofrequency ablation which seemed to help her last year. She wishes to proceed with surgery. Surgical options were discussed. L4-5 anterior posterior decompression with direct decompression was discussed in detail. All risks benefits and alternatives were discussed in detail. The risks include but are not limited to infection, bleeding, injury to nerves and vessels, need for blood transfusions, foot drop, persistent pain, hardware failure, pseudoarthrosis, adjacent segment degeneration, DVT, pulmonary embolism, pneumonia, atelectasis, ileus, visceral injury, cardiopulmonary event. Patient understands and agrees to proceed with surgery. Consent was signed.
--- NOTE | 2023-10-20 12:22 | RAD_ITS ---
EXAM: XR LUMBOSACRAL SPINE, 2 OR 3 VIEWS CLINICAL INDICATION: ERAS LUMBAR 360 FUSION L4-5 TECHNIQUE: Frontal and lateral views of the lumbar spine and sacrum. COMPARISON: No relevant prior studies available. FINDINGS: VERTEBRAE: The intraoperative images show placement of hardware from a posterior fusion of L4-L5. Preserved vertebral body height. No fracture. No spondylolisthesis. Preservation of the normal lumbar lordosis. No significant facet arthropathy. DISC SPACES: See above. GASTROINTESTINAL TRACT: Unremarkable as visualized. Included bowel gas pattern is non-obstructive. RAD/Lumbar Spine 2 or 3 Views IMPRESSION: Posterior fusion of L4 and L5. Electronically Signed: Balaji Lopes MD at 21:16 EDT ,
[2023-10-20] MEDS: Clindamycin 900 MG/50 ML BAG 75 MG IV ×2 (12:25→20:47)
[2023-10-20 14:23] LABS: Bedside Glucose 101 mg/dL (74-106)
[2023-10-20] MEDS: Ropivacaine 0.5% 30 ML Vial (15:22)
--- NOTE | 2023-10-20 16:18 | PCM.OPRPT ---
Report of Operation Date of Procedure: 10/20/23 Description of Surgical Findings:: Preoperative diagnosis: L4-5 spondylolisthesis, disc degeneration, stenosis with neurogenic claudication Postoperative diagnosis: Same Name of procedures L4-5 oblique lumbar interbody fusion (OLIF), minimally invasive left sided approach, lateral decubitus: ? L4-5 anterolateral spinal fusion 03949 ? L4-5 insertion of cage 54065 ? Bone graft aspirate left iliac crest separate incision ? Allograft cancellous chips Attending Surgeon: Dr. Aly Zuluaga Estimated blood loss: 100 mL Anesthesia: General Complications: None Indications: Patient is a 53-year-old pleasant lady who has had a long history of low back pain and right lower extremity radiation with difficulty walking distances neurogenic claudication. Xrays & MRI revealed L4-5 spondylolisthesis with instability and stenosis. After undergoing a prolonged period of nonoperative treatment, the patient elected to undergo surgical decompression & fusion. All surgical options were discussed with the patient including anterior and posterior approaches. All risks and benefits associated with the procedure were explained to the patient. The risks include but are not limited to infection, bleeding, injury to nerves and vessels including major vessels like IVC and aorta, persistent paresthesia, persistent pain, dural tear, need for further procedures, adjacent segment degeneration, pseudoarthrosis, hardware failure, retrograde ejaculation, paralytic ileus, etc. Procedure: The patient was identified in the preoperative holding suite using Unique patient identifiers. Skin was marked, consent was reviewed, and all questions were answered. The patient was then brought back to the operative room. A surgical timeout was performed to make sure correct procedure was being done on the correct patient and all operative room staff were on the same page. General endotracheal anesthesia was then given to the patient. Posey catheter was inserted. The patient was then carefully positioned in right lateral decubitus position with the left side up on a regular OR table. Axillary roll was placed and all bony prominences were well- padded. Hip positioners were placed in the posterior buttocks and anterior sternal area. The surgical area was prepped and draped in usual fashion. Preoperative antibiotic was injected IV as preoperative antibiotic. A final timeout was then again done just before starting the procedure. A 2 inch incision oblique was taken in the left lower quadrant of the abdomen 2 fingerbreadths away from the iliac crest and the lower ribs. Sharp dissection with Bovie was carried out up to the fascia covering the external oblique. The external oblique, internal oblique and transversus abdominis muscles were split along the muscle fibers and retroperitoneal space was entered. Sponge sticks were utilized to move the bowel and peritoneum [id number]-way and psoas muscle was exposed staying within the retroperitoneal plane. CSS99 retractor system was positioned and the retractor blade was applied onto the psoas. The interval between psoas and midline structures was developed and appropriate retractors were placed. Once adequate interval was cleared, a disc space was identified and a marker x-ray was taken. This identified the L4-5 disc level. Annulotomy was done with a long handled knife. Pituitary was used to remove disc material. Curettes were used to prepare the endplates. Disc space spreaders were utilized to distract and increase the disc height. Near complete discectomy was performed. Smaller disc distractors were also used to bluntly perform a contralateral annulotomy. Trials of serially increasing sizes were used. A Jamshidi needle was used to aspirate bone marrow from the left anterior iliac crest through a separate incision and this aspirate was mixed with the allograft bone chips. A Depuy [place] cage of size of the 18 x 45 x 14 mm with 15 degrees lordosis was packed with corticocancellous allograft bone chips mixed with bone marrow aspirate. This was inserted into the L4-5 disc space. AP and lateral C-arm pictures were taken to confirm good position of the cage. Some bone chips were also packed around the cages. Screw with washer was placed into the lower L4 body with a washer partially covering the cage at L4-5. Hemostasis was confirmed. The retractor blades were removed. Closure was done in layers with a continuous strand of # 1 Vicryl in all muscle layers. 2-0 Vicryl was used for subcutaneous tissue and 4-0 for Monocryl for the skin. Steri-Strips were applied and 4 x 4 gauze and Tegaderm were applied. Admit VTE Documentation VTE Mechan Device Prophylaxis: SCD's Procedures Musculoskeletal [id number]: Other Procedure See Report
--- NOTE | 2023-10-20 16:21 | OP.PCM_ITS ---
Report of Operation Date of Procedure: 10/20/23 Description of Surgical Findings:: Preoperative diagnosis: L4-5 spondylolisthesis, disc degeneration, stenosis with neurogenic claudication Postoperative diagnosis: Same Name of procedures: L4-5 posterior percutaneous pedicle screw instrumented fusion, prone: ? L4-5 posterior spinal fusion 96092 ? L4-5 posterior pedicle screw instrumentation [id number] ? Allograft cancellous chips [id number] Attending Surgeon: Dr. Aly Zuluaga Asst surgeon: Dr. Chandu Wing Estimated blood loss: 100 mL (total for entire case) Anesthesia: General Complications: None Description of procedure: After the anterior procedure was complete, the patient was then turned supine. The patient was then transferred to Jose table in prone position. Back was prepped and draped in usual fashion. C-arm AP view was then taken. C-arm was positioned in a way that L4 was centralized and superior endplate of was parallel to the beam. Spinous process was centered between the pedicles. Midline was marked with skin marker and lateral borders of the pedicles were also marked. Skin marker was also utilized to zelda transversely across the middle of the pedicles at L4. 2 longitudinal paramedian incisions of 1 inch were placed. The fascia was incised vertically. Finger dissection was utilized to palpate the transverse process and facet joint. Viper Prime screws with towers were inserted and docked onto the transverse processes. This was then slowly moved medially to reach the superior articular process of L4. This was then confirmed on C-arm and then a mallet was utilized to drive the trocar into the pedicle going up to the medial wall of the pedicle on AP view. This was performed both sides. C-arm lateral view confirmed that the tip of the trocar was in the vertebral body, and the screw was advanced into the pedicle and vertebral body. This was repeated similarly at L5 bilaterally. Screw sizes were 7 x 45 mm at L4 and L5 bilaterally. 45 mm precontoured titanium 5.5 mm lordotic alicja on the right and 40 mm on the left were then passed through the screw extensions and reduced down to the screws with the help of [employer] instrumentation system on both sides. AP and lateral view of the C-arm showed good positioning of the screws and cages. Final tightening with the torque screwdriver was then completed. [place] was utilized to roughen the facet joint at L4-5 on the left side. Cancellous allograft bone chips mixed with bone marrow aspirate were then placed over this decorticated area. Hemostasis was achieved. Closure was done in layers with 0 Vicryls for the fascia, 2-0 Vicryls for the subcutaneous tissue, and Monocryl for the skin. Dermabond was applied. Dressings were applied covered with Tegaderm. The patient was then turned supine onto a hospital bed. The patient was extubated and taken to PACU in stable condition. The patient tolerated the procedure well and no complications occurred. Depuy [place] cage & Viper Prime minimally invasive pedicle screw instrumentation system was utilized in this case. No dural tear was identified intraoperatively. I was present for the entirety of the case and performed the surgery. Surgeon: Aly Zuluaga customer operations intern: Chandu Wing Admit VTE Documentation VTE Mechan Device Prophylaxis: SCD's Procedures Musculoskeletal 20xxx-[id number]: Other Procedure See Report
[2023-10-20 16:26] LABS: Bedside Glucose 132 mg/dL (74-106)
[2023-10-20] MEDS: Methocarbamol 500 MG Tablet 1000 MG PO ×2 (18:27→22:34)
[2023-10-20] MEDS: Ketorolac 15 MG/ML Vial IV (18:27)
--- NOTE | 2023-10-20 19:07 | CON.PCM.HO_ITS ---
Assessment & Plan Assessment/Plan (1) Hyperlipemia, mixed: (2) Essential hypertension: PLAN: Plan #Spinal stenosis with neurogenic claudication * s/p L4-5 posterior spinal fusion and posterior pedicle screw instrumentation * Today is POD 0 * management as per primary service spine surgery * PT/OT on board * fall precautions * #Hypertension: on metoprolol. IV hydralazine prn #Hyperlipidemia: on statin # History of CAD: S/p stents in RCA. On aspirin and Brilinta but these are currently on hold because she just had back surgery. To resume when okay with spine surgery. On high intensity statin #Type 2 diabetes mellitus: On metformin and pioglitazone. Insulin sliding scale. Accuchecks ACHS. #Depression: On bupropion and duloxetine #Restless leg syndrome: On ropinirole DVT prophylaxis: as per primary team. SCDs Thank you for the courtesy of the consult. Hospitalist service will continue to follow with you. HPI Consult Data Date of Consult: 10/20/23 HPI Narrative Reason for Consultation: medical management HPI Narrative: BRIAN CARMEN, is a 53 F with a PMH as outlined who was admitted to the service of spine surgery on 10/20/2023 for L4-L5 spinal fusion on account of spinal stenosis with neurogenic claudication. She had L4-L5 posterior spinal fusion with posterior pedicle screw instrumentation on 10/20/2023. Hospitalist service was consulted for medical management. Patient was seen after surgery. She said her pain was well-controlled when she lays still but was aggravated by movement. She denied any shortness of breath, any fever or chills, nausea or vomiting or any other symptoms. Review of systems otherwise negative. [facility] Medical History Sepsis UTI (urinary tract infection) Wears glasses Wears dentures Alcohol use Diabetes Injury of head and neck Dietary restriction Asthma Shortness of breath on exertion History of pain when walking History of echocardiogram History of stress test Cardiology follow-up encounter Vitamin D deficiency Smoker PCOS (polycystic ovarian syndrome) Obesity Herniated cervical disc GERD (gastroesophageal reflux disease) Fibromyalgia Essential hypertension Atherosclerotic heart disease of burns [place] coronary artery without angina pectoris STEMI (ST elevation myocardial infarction) (09/06/22) Peripheral vestibulopathy DDD (degenerative disc disease), lumbar Chronic SI joint pain Depression Anxiety Polyneuropathy Chronic low back pain with bilateral sciatica Restless legs syndrome Neck pain MVP (mitral valve prolapse) Sleep apnea Hyperlipemia, mixed H/O non-insulin dependent diabetes mellitus Syncope Home Medications ?Medication ?Instructions ?Recorded ?Last Taken ?Type albuterol sulfate 90 mcg/actuation 2 puff inhalation Q4H PRN 08/07/20 Unknown History aerosol inhaler shortness of breath or wheezing allopurinol 300 mg tablet 300 mg PO DAILY GOUT 08/07/20 Unknown History aspirin 81 mg tablet,delayed 81 mg PO DAILY SUPPLEMENT 08/07/20 Unknown History release (Adult Aspirin Regimen) ticagrelor 90 mg tablet (Brilinta) 90 mg PO DAILY BLOOD THINNER 09/30/22 Unknown History bupropion HCl 300 mg 24 hr tablet, 300 mg PO DAILY DEPRESSION 11/05/22 10/20/23 History extended release cholecalciferol (vitamin D3) 50 50 mcg PO DAILY SUPPLEMENT 11/05/22 Unknown History mcg (2,000 unit) capsule fluticasone propionate 100 1 inh inhalation BID ASTHMA 11/05/22 Unknown History mcg/actuation blister powder for inhalation (Flovent Diskus) lamotrigine 100 mg tablet 100 mg PO DAILY MOOD 11/05/22 10/20/23 History lansoprazole 30 mg capsule,delayed 30 mg PO BID GERD 11/05/22 10/20/23 History release metformin 500 mg tablet,extended 750 mg PO BID DIABETES 11/05/22 10/19/23 History release 24 hr pioglitazone 30 mg tablet 30 mg PO DAILY DIABETES 11/05/22 Unknown History duloxetine 30 mg capsule,delayed 90 mg PO DAILY DEPRESSION 11/06/22 10/20/23 History release ropinirole 0.5 mg tablet 0.5 mg PO QHS RLS #30 tabs 02/05/23 Unknown Rx ascorbic acid (vitamin C) 500 mg 500 mg PO DAILY SUPPLEMENT 08/27/23 Unknown History tablet atorvastatin 40 mg tablet 80 mg PO QHS CHOLESTEROL 08/27/23 Unknown History coenzyme [id number] E 100 mg-100 1 cap PO DAILY SUPPLEMENT 08/27/23 Unknown History unit capsule gabapentin 100 mg capsule 100 mg PO QHS PAIN 08/27/23 Unknown History magnesium oxide 400 mg PO DAILY SUPPLEMENT 08/27/23 Unknown History metoprolol succinate 25 mg 50 mg PO QHS HEART 08/27/23 10/19/23 History tablet,extended release 24 hr estradiol 0.01% (0.1 mg/gram) vaginal 10/10/23 Unknown History vaginal cream metformin 750 mg tablet,extended 1,500 mg PO BID Diabetes 10/20/23 Unknown History release 24 hr Allergy/AdvReac Type Severity Reaction Status Date / Time Environmental Allergies: Allergy Unknown Rash Verified 10/20/23 10:34 Uncoded Penicillins Allergy Unknown Rash Verified 10/20/23 10:34 soap Allergy Unknown itching, Verified 10/20/23 10:34 rash adhesive tape (plastic tape) AdvReac Severe Hives Verified 10/20/23 10:34 Family History Father Congestive heart failure Diabetes Brother Hypertension Heart disease Mother Fibromyalgia Vitamin D deficiency Aunt Lupus Surgical History Hx of colonoscopy Hx of dilation and curettage Hx of fusion of cervical spine History of eye surgery Hx of unilateral salpingectomy Stented coronary artery (09/06/22) History of carpal tunnel surgery (~2011) Social History household members: spouse Smoking Status: Current some day smoker tobacco type: cigarettes Tobacco: How many years used: 29 second hand exposure: Yes alcohol intake: current alcohol intake frequency: holidays/special occasions only substance use type: does not use caffeine: Yes Type: carbonated beverages Number of servings: 6 marisol/caodaism: Mormonism seatbelt use: always ROS Constitutional Constitutional: Denies change in weight, chills, fatigue, fever(s), malaise or weakness Eyes Eyes: Denies change in vision ENT HEENT: Denies dysphagia or headache(s) Cardiovascular Cardiovascular: Denies chest pain, dyspnea on exertion, edema, lightheadedness, orthopnea, palpitations, paroxysmal nocturnal dyspnea, rapid heart rate or syncope Respiratory/Chest Respiratory/Chest: Denies cough, dyspnea, productive cough, shortness of breath at rest, shortness of breath with exertion or wheezing Gastrointestinal Gastrointestinal: Denies abdominal pain, constipation, diarrhea, melena, nausea or vomiting Genitourinary Genitourinary: Denies burning urination, dysuria or hematuria Musculoskeletal Musculoskeletal: Reports back pain; Denies joint swelling, myalgias or neck pain Neurologic Neurologic: Denies confusion, dizziness, focal weakness, headache(s), numbness, seizure-like activity, seizures or syncope Psychiatric Psychiatric: Denies anxiety or depression Endocrine Endocrinology: Denies change in body appearance Physical Exam Const alert, oriented x3, no apparent distress and average body habitus Constitutional Narrative: obese General Appearance: cooperative HEENT normocephalic, head/scalp atraumatic, hearing grossly normal bilaterally, moist oral mucous membranes and oropharynx normal Mouth: oral and palatal mucosa normal Eyes PERRL, EOMs intact bilaterally and conjunctivae normal Neck supple and no JVD Resp Resp Narrative: mildly diminished breath sounds bibasally, no wheezes or crackles. On 2L of oxygen by nasal canula Cardio regular rate, regular rhythm, S1 normal heart sound, S2 normal heart sound and no murmurs GI normal to inspection, nondistended, normoactive bowel sounds, soft to palpation, non-tender and non-distended Extremity normal to inspection, full ROM and no clubbing, cyanosis or edema Neuro CN's II-XII intact bilaterally, moves all extremities, no focal motor deficits and no sensory deficits noted Sensorium / Orientation: awake and alert Motor Exam: strength 5/5 throughout Psych affect normal Lab / Micro Data 10/09/23 15:37 10/09/23 15:37 Labs: Laboratory Results - last 24 hr 10/20/23 10:41: POC Glucose 167 H 10/20/23 14:05: POC Glucose 101 10/20/23 16:09: POC Glucose 132 H Charges/Coding Visit Charges Inpatient E&M: 75077 Subs Hosp L2
[2023-10-20] MEDS: Budesonide Respules 0.5 MG/2 ML AMPUL.NEB. INHALATION (19:39)
[2023-10-20] MEDS: Pantoprazole Sodium 40 MG Tablet PO (22:34)
[2023-10-20] MEDS: Pramipexole Di-HCl 0.25 MG Tablet PO (22:34)
[2023-10-20] MEDS: Senna/Docusate Sodium 1 Tablet 2 TABLET PO (22:34)
[2023-10-20] MEDS: Atorvastatin Calcium 80 MG Tablet PO (22:35)
[2023-10-20] MEDS: Insulin Lispro 100 UNIT/ML INSULN.PEN SC (22:39)
[2023-10-20] MEDS: Gabapentin 100 MG Capsule PO (22:41)
[2023-10-20 23:01] LABS: Bedside Glucose 192 mg/dL (74-106)
[2023-10-21] VITALS (7 sets, daily range): BP systolic 93–103; BP diastolic 45–66; PULSE 84–95; RESP 16; TEMP 36.2–36.9; O2SAT 96–100
[2023-10-21] MEDS: Ketorolac 15 MG/ML Vial IV ×2 (00:34→05:16)
[2023-10-21] MEDS: Clindamycin 900 MG/50 ML BAG 75 MG IV (05:15)
[2023-10-21] MEDS: Acetaminophen 500 MG Tablet 1000 MG PO ×2 (05:16→14:31)
[2023-10-21 06:17] LABS: Hematocrit 31.4 % (37-47); Hemoglobin 9.5 g/dL (12.0-15.0); Mean Corp Hgb Conc 30.3 g/dL (32-36); Mean Corpuscular Hgb 26.6 pg (27.0-32.0); Mean Platelet Vol. 11.4 fl (6.2-12.0); Platelet Count 262 K/mm3 (150-450); RBC Distribution Width CV 17.8 % (11.6-14.6); RBC Distribution Width SD 56.8 fl (35.1-43.9); Red Blood Count 3.57 M/mm3 (4.2-5.4)
[2023-10-21 07:06] LABS: Anion Gap 7 (5-15); BUN 12 mg/dL (7-18); BUN/Creat Ratio 10.5 RATIO (10-20); Calcium,Total 8.4 mg/dL (8.5-10.1); Chloride 106 mmol/L (98-107); Creatinine, Serum 1.14 mg/dL (0.55-1.02); EST Glomerular Filtration Rate 53 mL/min (>60); Est Glom Filt Rate - Afr Amer 64 mL/min (>60); Estimated Creatinine Clearance 62.73 ml/min; Glucose 134 mg/dL (74-106); Potassium 4.6 mmol/L (3.5-5.1); Sodium Level 136 mmol/L (136-145)
[2023-10-21 07:09] LABS: Bedside Glucose 143 mg/dL (74-106)
[2023-10-21] MEDS: Budesonide Respules 0.5 MG/2 ML AMPUL.NEB. INHALATION (07:18)
--- NOTE | 2023-10-21 08:15 | RAD_ITS ---
STUDY: X-RAY - LUMBAR SPINE REASON FOR EXAM: Female, 53 years old. S/p fusion -- pls do Upright AP, Lat TECHNIQUE: 2 view(s) of the lumbar spine were obtained. COMPARISON: Comparison is made with prior study dated August 27, 2023. FINDINGS: The patient is status post interpedicular screw fixation and disc placement at the L4-L5 level. RAD/Lumbar Spine 2 or 3 Views IMPRESSION: Status post interpedicular screw and alicja fixation at the L4-L5 level with disc placement. Electronically Signed: Edilberto Swan MD at 9:52 EDT ,
[2023-10-21] MEDS: Senna/Docusate Sodium 1 Tablet 2 TABLET PO (08:28)
[2023-10-21] MEDS: Pantoprazole Sodium 40 MG Tablet PO (08:28)
[2023-10-21] MEDS: Cholecalciferol (VIT D3) 25 MCG TABLET (1,000 UNITS) 50 MCG PO (08:29)
[2023-10-21] MEDS: Metoprolol(XL)Succ 50 MG Tablet PO (08:29)
[2023-10-21] MEDS: Pioglitazone Hydrochloride 30 MG Tablet PO (08:29)
[2023-10-21] MEDS: Ascorbic Acid 500 MG Tablet PO (08:29)
[2023-10-21] MEDS: Allopurinol 300 MG Tablet PO (08:29)
[2023-10-21] MEDS: lamoTRIgine 100 MG Tablet PO (08:30)
[2023-10-21] MEDS: buPROPion (XL) 300 MG TABLET.XL PO (08:30)
[2023-10-21] MEDS: Methocarbamol 500 MG Tablet 1000 MG PO ×2 (08:30→14:31)
[2023-10-21] MEDS: DULoxetine Hcl 30 MG Capsule 90 MG PO (08:30)
[2023-10-21] MEDS: Ensure Surgery 237 ML LIQUID PO ×2 (08:31→11:07)
[2023-10-21] MEDS: Insulin Lispro 100 UNIT/ML INSULN.PEN SC (11:01)
[2023-10-21] MEDS: oxyCODONE 5 MG Tablet PO (11:07)
--- NOTE | 2023-10-21 11:50 | CASEMGMT ---
ANIKA LEZAMA Face to Face with patient for initial transition planning/care coordination assessment. ANIKA LEZAMA introduced self and role at [facility]. Patient sitting in chair, alert and oriented. Patient willing to participate in assessment and is able to answer all questions appropriately. Care providers, pharmacy, and demographics verified. PCP: Alessia at [facility] Specialists: Megan, community development coordinator; Quique, urologsit; Preferred Pharmacy: [facility] at discharge. Insurance: UMR Prescription Benefit: yes Living Will/HPOA: none LNOK: Living Arrangements: Patient lives with in a single story home with 1 step to enter. Patient states she is independent at home. Transportation: self, DME/HHC: Patient states she has shower chair, raised toilet, cane, and cpap at home. Patient interested in walker at discharge, prefers [facility] to arrange for walker at discharge. Patient wishes to discharge home and states that Dr. Zuluaga states he would write script for outpatient therapy to attend in [place], [facility] to assist with script. Patient states she has no further needs or concerns at this time. CM to follow for discharge planning needs that may arise. Disposition Plan: Patient to discharge home with outpatient therapy, family support, and follow-up plans in place. Sadie POMPA, RN, CM
[2023-10-21 11:52] LABS: Bedside Glucose 237 mg/dL (74-106)
--- NOTE | 2023-10-21 12:40 | PN.ORTHO_ITS ---
Subjective Subjective Postop day 1 status post L4-5 fusion. Pain well-controlled. Patient seated on chair having lunch. Passes flatus, advance to solid food. Worked with PT today and with nursing last night. Objective Data Objective Data Vital Signs: Vital Signs Temp Pulse Resp BP Pulse Ox O2 Del Method O2 Flow Rate 97.9 F 95 16 93/48 L 100 Room Air 2 10/21/23 11:38 10/21/23 11:38 10/21/23 11:38 10/21/23 11:38 10/21/23 11:38 10/21/23 11:38 10/21/23 02:05 Oxygen Flow Rate (L/min) 2 Oxygen Delivery Method Room Air Weight: 227 lb 1.218 oz Body Mass Index (BMI) 41.5 Intake & Output: Intake and Output for Last 24 Hours 10/19/23 10/20/23 10/21/23 23:59 23:59 23:59 Intake Total 1204 / 1404 1138 / 1138 Output Total 150 / 150 Balance 1054 / 1254 1138 / 1138 Lab / Micro Data 10/21/23 05:39 10/21/23 05:39 Labs: Laboratory Results - last 24 hr 10/20/23 14:05: POC Glucose 101 10/20/23 16:09: POC Glucose 132 H 10/20/23 22:39: POC Glucose 192 H 10/21/23 05:39: WBC 14.0 H, RBC 3.57 L, Hgb 9.5 L, Hct 31.4 L, MCV 88.0, MCH 26.6 L, MCHC 30.3 L, RDW Std Deviation 56.8 H, RDW Coeff of [place]urn[place] 17.8 H, Plt Count 262, MPV 11.4, Sodium 136, Potassium 4.6, Chloride 106, Carbon Dioxide 23.0, Anion Gap 7, BUN 12, Creatinine 1.14 H, Estim Creat Clear Calc 62.73, Est GFR (MDRD) Af Amer 64, Est GFR (MDRD) Non-Af 53 L, BUN/Creatinine Ratio 10.5, G lucose 134 H, Calcium 8.4 L 10/21/23 06:52: POC Glucose 143 H 10/21/23 10:59: POC Glucose 237 H Micro: Microbiology 10/09/23 15:37 Swab (Method) Nasal Screen MRSA/MSSA - Final Radiography Diagnostic Testing: Radiology Impression Lumbar Spine X-Ray 10/20/23 12:22 IMPRESSION: Posterior fusion of L4 and L5. Electronically Signed: Balaji Lopes MD at 21:16 EDT , Lumbar Spine X-Ray 10/21/23 08:15 IMPRESSION: Status post interpedicular screw and alicja fixation at the L4-L5 level with disc placement. Electronically Signed: Edilberto Swan MD at 9:52 EDT , Physical Exam Narrative Dressing?CDI. Neurologic evaluation of lower extremity shows 5 x 5 power normal shows normal sensations in all dermatomes. Assessment & Plan Assessment/Plan (1) Status post lumbar spinal fusion: PLAN: Plan Postop day 1 status post L4-5 fusion. PT OT cleared. X-rays reviewed., Look good. Passed flatus, having solid lunch. Had hypotension earlier today but denies dizziness. Okay to discharge home if tolerates solid meal, and cleared by hospitalist.
--- NOTE | 2023-10-21 13:28 | PN.HOSP_ITS ---
Subjective Subjective Doing well, no lightheadedness dizziness, shortness of breath. No chest pain. Pain is controlled Objective Data Objective Data Vital Signs: Vital Signs Temp Pulse Resp BP Pulse Ox O2 Del Method O2 Flow Rate 97.9 F 95 16 93/48 L 100 Room Air 2 10/21/23 11:38 10/21/23 11:38 10/21/23 11:38 10/21/23 11:38 10/21/23 11:38 10/21/23 11:38 10/21/23 02:05 Oxygen Flow Rate (L/min) 2 Oxygen Delivery Method Room Air Weight: 227 lb 1.218 oz Body Mass Index (BMI) 41.5 Intake & Output: Intake and Output for Last 24 Hours 10/20/23 10/21/23 10/22/23 03:59 03:59 03:59 Intake Total 1404 / 1404 938 / 938 Output Total 150 / 150 Balance 1254 / 1254 938 / 938 Lab / Micro Data 10/21/23 05:39 10/21/23 05:39 Labs: Laboratory Results - last 24 hr 10/20/23 14:05: POC Glucose 101 10/20/23 16:09: POC Glucose 132 H 10/20/23 22:39: POC Glucose 192 H 10/21/23 05:39: WBC 14.0 H, RBC 3.57 L, Hgb 9.5 L, Hct 31.4 L, MCV 88.0, MCH 26.6 L, MCHC 30.3 L, RDW Std Deviation 56.8 H, RDW Coeff of Purnima 17.8 H, Plt Count 262, MPV 11.4, Sodium 136, Potassium 4.6, Chloride 106, Carbon Dioxide 23.0, Anion Gap 7, BUN 12, Creatinine 1.14 H, Estim Creat Clear Calc 62.73, Est GFR (MDRD) Af Amer 64, Est GFR (MDRD) Non-Af 53 L, BUN/Creatinine Ratio 10.5, G lucose 134 H, Calcium 8.4 L 10/21/23 06:52: POC Glucose 143 H 10/21/23 10:59: POC Glucose 237 H Micro: Microbiology 10/09/23 15:37 Swab (Method) Nasal Screen MRSA/MSSA - Final Radiography Diagnostic Testing: Radiology Impression Lumbar Spine X-Ray 10/20/23 12:22 IMPRESSION: Posterior fusion of L4 and L5. Electronically Signed: Balaji Lopes MD at 21:16 EDT , Lumbar Spine X-Ray 10/21/23 08:15 IMPRESSION: Status post interpedicular screw and alicja fixation at the L4-L5 level with disc placement. Electronically Signed: Edilberto Swan MD at 9:52 EDT , Physical Exam Narrative General: Alert, Oriented x3, Cooperative, No apparent distress HEENT: Atraumatic, PERRLA, EOMI, Normocephalic Oral: Moist Mucosa Neck: Supple, No JVD Lungs: Diminished, Normal air movement, No rhonchi, No wheeze, No rales Cardiovascular: Regular rate, Regular Rhythm, Normal S1, Normal S2, No murmurs Abdomen: Soft, Non Tender, Non-Distended, No Hepato-splenomegaly Extremities: No edema, Capillary Refill Less than 3 Seconds Skin: Incision, CDI Musculoskeletal: No Tenderness to Palpation of Joints or Extremities Neurological: No focal neurological deficits, Motor Exam 5/5 strength throughout, Sensory exam intact to light touch and pain Psych/Mental Status: Normal Affect, Appropriate Assessment & Plan Assessment/Plan (1) Hyperlipemia, mixed: (2) Essential hypertension: PLAN: Plan #Spinal stenosis with neurogenic claudication * s/p L4-5 posterior spinal fusion and posterior pedicle screw instrumentation * Today is POD 1 * management as per primary service spine surgery * PT/OT on board * fall precautions * She has a leukocytosis of 14,000 which is likely reactive to surgery. Otherwise she is asymptomatic and feels ready to go home. From medical standpoint she is good for discharge with outpatient follow-up #Hypertension: on metoprolol. IV hydralazine prn #Hyperlipidemia: on statin # History of CAD: S/p stents in RCA. On aspirin and Brilinta but these are currently on hold because she just had back surgery. To resume when okay with spine surgery. On high intensity statin #Type 2 diabetes mellitus: On metformin and pioglitazone. Insulin sliding scale. Accuchecks ACHS. #Depression: On bupropion and duloxetine #Restless leg syndrome: On ropinirole Charges/Coding Visit Charges Inpatient E&M: 68405 Subs Hosp L2
--- NOTE | 2023-10-21 13:57 | CASEMGMT ---
ANIKA LEZAMA NOTE: Pt being discharged. Scripts for Walker and OP therapy prepared and this ANIKA LEZAMA sent message to Dr Zuluaga re: need of signature. Dr Zuluaga states has left the hospital and asked if hospitalist would sign for them. ANIKA LEZAMA sent message to Dr Coreas who was agreeable to signing and scripts received for walker and OP therapy. Script for walker sent to [facility] via [facility] and Walker given to pt from [facility] after consignment form signed and also sent to [facility] via [employer]. Pt provided w/OP script for therapy and made aware she can take to location of her choice. She would like dc meds delivered to her room. Call placed to John in the retail pharmacy and he was made aware. She denies having other discharge needs/concerns. Babita POMPA RN CM
--- NOTE | 2023-10-21 16:40 | PHA.DC_ITS ---
Pharmacy [facility] has performed discharge medication reconciliation and counseling for this patient. 1. ACETAMINOPHEN 500MG PO Q6 X 7 DAYS 2. METHOCARBAMOL 750MG PO TID PRN PAIN/SPASMS 3. OXYCODONE 2.5-5MG PO Q6H PRN PAIN 4. SENNA/DOCUSATE 2T PO BID PRN CONSTIPATION The patient's discharge medication list was reviewed for discrepancies and discrepancies were resolved. The patient was counseled on the following discharge medications and changes in medications for homegoing were reviewed. The Reason for Use, instructions for use, and potential side effects were reviewed for all new medications. The patient's questions regarding all of their medications were answered. The patient was able to verbally demonstrate an understanding of their discharge medications. Patient counseled by pharmacy informaticistDavid. Medications at Discharge Home Medications albuterol sulfate 90 mcg/actuation aerosol inhaler 2 puff inhalation Q4H PRN shortness of breath or wheezing 08/07/20 allopurinol 300 mg tablet 300 mg PO DAILY GOUT 08/07/20 aspirin 81 mg tablet,delayed release (Adult Aspirin Regimen) 81 mg PO DAILY SUPPLEMENT 08/07/20 ticagrelor 90 mg tablet (Brilinta) 90 mg PO DAILY BLOOD THINNER 09/30/22 bupropion HCl 300 mg 24 hr tablet, extended release 300 mg PO DAILY DEPRESSION 11/05/22 cholecalciferol (vitamin D3) 50 mcg (2,000 unit) capsule 50 mcg PO DAILY SUPPLEMENT 11/05/22 fluticasone propionate 100 mcg/actuation blister powder for inhalation (Flovent Diskus) 1 inh inhalation BID ASTHMA 11/05/22 lamotrigine 100 mg tablet 100 mg PO DAILY MOOD 11/05/22 lansoprazole 30 mg capsule,delayed release 30 mg PO BID GERD 11/05/22 pioglitazone 30 mg tablet 30 mg PO DAILY DIABETES 11/05/22 duloxetine 30 mg capsule,delayed release 90 mg PO DAILY DEPRESSION 11/06/22 ropinirole 0.5 mg tablet 0.5 mg PO QHS RLS #30 tabs 02/05/23 ascorbic acid (vitamin C) 500 mg tablet 500 mg PO DAILY SUPPLEMENT 08/27/23 atorvastatin 40 mg tablet 80 mg PO QHS CHOLESTEROL 08/27/23 coenzyme [id number] 100 mg-100 unit capsule 1 cap PO DAILY SUPPLEMENT 08/27/23 gabapentin 100 mg capsule 100 mg PO QHS PAIN 08/27/23 magnesium oxide 400 mg PO DAILY SUPPLEMENT 08/27/23 metoprolol succinate 25 mg tablet,extended release 24 hr 50 mg PO QHS HEART 08/27/23 estradiol 0.01% (0.1 mg/gram) vaginal cream vaginal 10/10/23 metformin 750 mg tablet,extended release 24 hr 750 mg PO BID Diabetes 10/20/23 acetaminophen 500 mg tablet 500 mg PO Q6H 7 days #28 tabs 10/21/23 methocarbamol 500 mg tablet 750 mg (1.5 x 500 mg) PO TID PRN Pain/spasms 7 days #28 tabs 10/21/23 oxycodone 5 mg tablet 2.5 - 5 mg (0.5 - 1 x 5 mg) PO Q6H PRN pain 7 days #28 tabs 10/21/23 sennosides 8.6 mg-docusate sodium 50 mg tablet (Stool Softener-Stimulant Laxative) 2 tab PO BID PRN constipation 7 days #28 tabs 10/21/23
== END 2023-10-21 15:45 | disposition home or self-care (01) | DRG 454 ==
LOC: ACINP 10:09 → MS3 16:54
PROVIDERS: Anesthesiology; Admitting Provider Orthopaedic Surgery Orthopaedic Surgery of the Spine; Referring Provider Orthopaedic Surgery Orthopaedic Surgery of the Spine; Visit Provider Orthopaedic Surgery Orthopaedic Surgery of the Spine
PROC: 0SG00A0 Fusion of Lumbar Vertebral Joint with Interbody Fusion Device, Anterior Approach, Anterior Column, Open Approach (ICD-10-PCS; principal; 2023-10-20 11:45)
DX: M43.16 Spondylolisthesis, lumbar region (principal); Z68.41 Body mass index [BMI] 40.0-44.9, adult; E11.42 Type 2 diabetes mellitus with diabetic polyneuropathy; E66.01 Morbid (severe) obesity due to excess calories; I10 Essential (primary) hypertension; G25.81 Restless legs syndrome; F32.A Depression, unspecified; M48.062 Spinal stenosis, lumbar region with neurogenic claudication; E78.2 Mixed hyperlipidemia; F17.210 Nicotine dependence, cigarettes, uncomplicated; I25.10 Atherosclerotic heart disease of native coronary artery without angina pectoris; I25.2 Old myocardial infarction; M51.36 Other intervertebral disc degeneration, lumbar region; M46.1 Sacroiliitis, not elsewhere classified; X58.XXXA Exposure to other specified factors, initial encounter; Z95.5 Presence of coronary angioplasty implant and graft; Z79.02 Long term (current) use of antithrombotics/antiplatelets; Z79.82 Long term (current) use of aspirin; Z79.84 Long term (current) use of oral hypoglycemic drugs; Z79.899 Other long term (current) drug therapy
CPT/HCPCS: 36415; 72100; 76000; 80048; 82962; 83036; 83735; 85025; 85027; 86703; 86706; 86708; 86803; 86850; 86900; 86901; 87077; 87081; 94640; 94668; 97162; 97166; C1713; J7120; J2405